=== PATIENT | female | born 1960 | race Caucasian/White ===

== ENCOUNTER 2018-07-30 09:47 | Day surgery (SDC) | payer MEDICAID ==
[~2018-07-30 09:47] MED LIST: PROPOFOL INJ 200 MG/20 ML VIAL IV ONE
[2018-07-30 12:10] VITALS: BP 108/70
--- NOTE | 2018-07-30 13:44 | Operative Report ---
Operative Report DATE OF SURGERY: 07/30/18 Operative Report: The risks benefits and alternatives of the procedure explained to the patient in detail and informed consent is obtained.A GIF Olympus video scope was inserted into the patient's mouth and hypopharynx, the esophagus is identified intubated and insufflated, the scope was then advanced through the esophagus stomach and duodenum, retroflexion maneuver is done, the esophagus stomach and first and second portions of the duodenum examined. PREOPERATIVE DIAGNOSIS: Gastroesophageal reflux disease POSTOPERATIVE DIAGNOSIS: Hiatal hernia. Gastritis status post biopsy for Helicobacter pylori OPERATION: EGD with biopsy SURGEON: GILMER HAMMER ANESTHESIA: LMAC TISSUE REMOVED OR ALTERED: As noted above. COMPLICATIONS: None. ESTIMATED BLOOD LOSS: None. INTRAOPERATIVE FINDINGS: As noted above. PROCEDURE: Patient tolerated the procedure well. No immediate postprocedure complications are noted. Patient discharged in good condition. Discharge date 07/30/2018. Discharge diet: Regular. Discharge activity: Regular. 2-3-week follow-up to discuss findings. Patient is instructed to call the office or proceed to the emergency room should there be any further proximal questions. I will wait on the pathology.
== END 2018-07-30 13:09 | disposition home or self-care (01) ==
LOC: END 09:47
PROVIDERS: ATTEND Internal Medicine Gastroenterology
DX: K44.9 Diaphragmatic hernia without obstruction or gangrene (principal); K29.70 Gastritis, unspecified, without bleeding; K21.9 Gastro-esophageal reflux disease without esophagitis; E78.5 Hyperlipidemia, unspecified; I10 Essential (primary) hypertension; Z87.891 Personal history of nicotine dependence; Z79.899 Other long term (current) drug therapy; Z79.82 Long term (current) use of aspirin; Z88.5 Allergy status to narcotic agent
CPT/HCPCS: 43239; 88342 ×2; 88305 ×2; J2704; 731

== ENCOUNTER → 2018-08-20 | Outpatient (CLI) | payer MEDICAID ==
[2018-08-20 14:09] LABS: ABSOLUTE EOSINOPHILS # (AUTO) 0.2 10^3/uL (0.0-0.6); ABSOLUTE LYMPHOCYTES (AUTO) 1.8 10^3/uL (0.5-4.7); ABSOLUTE MONOCYTES (AUTO) 0.5 10^3/uL (0.1-1.4); ABSOLUTE NEUT (AUTO) 3.1 10^3/uL (1.7-8.2); BASOPHILS % (AUTO) 0.8 % (0-2); HEMATOCRIT 38.3 % (36.0-47.0); HEMOGLOBIN 12.9 g/dL (12.0-15.5); LYMPHOCYTES % (AUTO) 31.9 % (13-45); MEAN CORPUSCULAR HEMOGLOBIN 26.9 pg (27.0-33.4); MEAN CORPUSCULAR HGB CONC 33.8 g/dL (32.0-36.0); MEAN CORPUSCULAR VOLUME 80 fl (80-97); MONOCYTES % (AUTO) 8.6 % (3-13); PLATELET COUNT 390 10^3/uL (150-450); RED CELL DISTRIBUTION WIDTH 14.1 % (11.5-14.0); SEGMENTED NEUTROPHILS % (AUTO) 55.7 % (42-78); TOTAL CELLS COUNTED % (AUTO) 100 %; WHITE BLOOD COUNT 5.5 10^3/uL (4.0-10.5)
[2018-08-20 14:30] LABS: ALANINE AMINOTRANSFERASE 16 U/L (9-52); ALBUMIN 4.4 g/dL (3.5-5.0); ALKALINE PHOSPHATASE 109 U/L (38-126); ANION GAP 9 (5-19); ASPARTATE AMINO TRANSFERASE 15 U/L (14-36); BILIRUBIN,DIRECT 0.2 mg/dL (0.0-0.4); BILIRUBIN,TOTAL 0.4 mg/dL (0.2-1.3); BLOOD UREA NITROGEN 14 mg/dL (7-20); C-REACTIVE PROTEIN 8.3 mg/L (<10.0); CALCIUM 10.5 mg/dL (8.4-10.2); CARBON DIOXIDE 27 mmol/L (22-30); CHLORIDE 100 mmol/L (98-107); GLUCOSE 90 mg/dL (75-110); SODIUM 135.7 mmol/L (137-145); TOTAL PROTEIN 7.7 g/dL (6.3-8.2)
--- NOTE | 2018-08-20 14:41 | RADIOLOGY REPORT (SQ) ---
EXAM DESCRIPTION: C SP 4 OR 5 VIEWS COMPLETED DATE/TIME: 08/20/2018 2:14 pm REASON FOR STUDY: CERVICALGIA G89.4 CHRONIC PAIN SYNDROME M25.50 PAIN IN UNSPECIFIED JOINT COMPARISON: None. NUMBER OF VIEWS: Five views. TECHNIQUE: AP, lateral, obliques and odontoid radiographic images acquired of the cervical spine. LIMITATIONS: None. FINDINGS: MINERALIZATION: Normal. ALIGNMENT: Anatomic. VERTEBRAE: Vertebral bodies of normal height. DISCS: Moderate to moderate severe disc space narrowing at C5-C6 and C6-C7. Small to very mild ante rior osteophytes. FORAMINA: Moderate to moderate severe foraminal narrowing on the right at C3-C4. Mild foraminal nieves rowing on the left at C5-C6 and C6-C7. Small posterior osteophytes encroach on the C6-C7 foramina bi laterally. LATERAL AND POSTERIOR ELEMENTS: Multilevel mild facet arthrosis. The lateral masses and spinous proc esses without significant findings. HARDWARE: None in the spine. SOFT TISSUES: No masses or calcifications. Lung apices clear. OTHER: The patient is edentulous. IMPRESSION: 1. Degenerative disc disease at C5-C6 and C6-C7. 2. Moderate to moderate severe foraminal narrowing on the right at C3-C4. Mild foraminal narrowing on the left at C5-C6 and C6-C7. Small posterior osteophytes encroach on the foramina bilaterally at C6-C7. 3. No acute osseous findings. TECHNICAL DOCUMENTATION: JOB ID: [id number] [employer]- All Rights Reserved Reading location - IP/workstation name: [email or web address]
--- NOTE | 2018-08-20 14:42 | RADIOLOGY REPORT (SQ) ---
EXAM DESCRIPTION: HIPS BILATERAL COMPLETED DATE/TIME: 08/20/2018 2:14 pm REASON FOR STUDY: PAIN IN UNSPECIFIED JOINT G89.4 CHRONIC PAIN SYNDROME M25.50 PAIN IN UNSPECIFIED JOINT COMPARISON: None. NUMBER OF VIEWS: Two views TECHNIQUE: AP pelvis and additional frog-leg view of both hips. LIMITATIONS: None. FINDINGS: MINERALIZATION: Normal. HIPS: No acute fracture or dislocation. No worrisome bone lesions. PELVIS AND SACRUM: No acute fracture or dislocation. No worrisome bone lesions. PUBIS AND ISCHIUM: No acute fracture. LOWER LUMBAR SPINE: No significant findings as visualized. SOFT TISSUES: No findings. OTHER: No other significant finding. IMPRESSION: 1. NEGATIVE STUDY OF THE PELVIS AND HIPS. TECHNICAL DOCUMENTATION: JOB ID: [id number] [employer]- All Rights Reserved Reading location - IP/workstation name: [email or web address]
[2018-08-20 14:47] LABS: FREE T3 4.51 pg/mL (2.77-5.27); FREE T4 (FREE THYROXINE) 1.31 ng/dL (0.78-2.19)
[2018-08-20 14:58] LABS: ERYTHROCYTE SEDIMENTATION RATE 24 mm/hr (0-30)
[2018-08-20 15:00] LABS: THYROID STIMULATING HORMONE 5.61 uIU/mL (0.47-4.68)
[2018-08-21 14:43] LABS: ANTINUCLEAR ANTIBODIES Negative (Negative)
== END ==
LOC: OD 12:44
PROVIDERS: ATTEND Physician Assistant
DX: M25.50 Pain in unspecified joint (principal); G89.4 Chronic pain syndrome
CPT/HCPCS: 36415; 72050; 73522; 80053; 82607; 82652; 84439; 84443; 84481; 85025; 85652; 86038; 86140; 86430

== ENCOUNTER → 2018-08-30 | Outpatient (CLI) | payer MEDICAID ==
--- NOTE | 2018-08-30 10:28 | RADIOLOGY REPORT (SQ) ---
EXAM DESCRIPTION: U/S ABDOMEN LIMITED W/O DOP COMPLETED DATE/TIME: 08/30/2018 9:20 am REASON FOR STUDY: ABDOMINAL PAIN R10.9 UNSPECIFIED ABDOMINAL PAIN COMPARISON: None. TECHNIQUE: Dynamic and static grayscale images acquired of the abdomen and recorded on PACS. Deniseo davidson selected color Doppler and spectral images recorded. LIMITATIONS: None. FINDINGS: PANCREAS: The liver is somewhat echogenic. There is no mass. LIVER: No masses. Echotexture normal. LIVER VASCULATURE: Normal directional flow of the main portal vein and hepatic veins. GALLBLADDER: No stones. Normal wall thickness. No pericholecystic fluid. ULTRASOUND-DETECTED GANNON'S SIGN: Negative. INTRAHEPATIC DUCTS AND COMMON DUCT: CBD and intrahepatic ducts normal caliber. No filling defects. INFERIOR VENA CAVA: Normal flow. AORTA: No aneurysm. RIGHT KIDNEY: Normal size, 9.9 cm. Cortical thinning. Normal echogenicity. No solid or suspicious m asses. No hydronephrosis. No calcifications. PERITONEAL AND RIGHT PLEURAL SPACE: No ascites or effusions. OTHER: No other significant findings. IMPRESSION: NORMAL RIGHT UPPER QUADRANT ULTRASOUND. TECHNICAL DOCUMENTATION: JOB ID: [id number] [employer]- All Rights Reserved Reading location - IP/workstation name: [email or web address]
== END ==
LOC: RAD 08:40
PROVIDERS: ATTEND Surgery
DX: R10.9 Unspecified abdominal pain (principal)
CPT/HCPCS: 76705

== ENCOUNTER → 2018-09-13 | Day surgery (SDC) | payer MEDICAID ==
[~2018-09-13] MED LIST changes: +LIDOCAINE 2% JELLY 5 ML TUBE ONE; -PROPOFOL INJ 200 MG/20 ML VIAL IV ONE
== END ==
LOC: END 07:54
PROVIDERS: ATTEND Surgery
DX: K21.9 Gastro-esophageal reflux disease without esophagitis (principal)
CPT/HCPCS: 91010; J3490

== ENCOUNTER 2018-11-08 07:57 | Observation (INO) | payer MEDICAID ==
[2018-10-31 10:43] LABS: HEMATOCRIT 38.3 % (36.0-47.0); HEMOGLOBIN 12.6 g/dL (12.0-15.5); MEAN CORPUSCULAR HEMOGLOBIN 26.6 pg (27.0-33.4); MEAN CORPUSCULAR HGB CONC 32.9 g/dL (32.0-36.0); MEAN CORPUSCULAR VOLUME 81 fl (80-97); PLATELET COUNT 428 10^3/uL (150-450); RED BLOOD COUNT 4.75 10^6/uL (3.72-5.28); WHITE BLOOD COUNT 7.3 10^3/uL (4.0-10.5)
[2018-10-31 11:14] LABS: ANION GAP 11 (5-19); BLOOD UREA NITROGEN 16 mg/dL (7-20); CALCIUM 9.7 mg/dL (8.4-10.2); CARBON DIOXIDE 27 mmol/L (22-30); CHLORIDE 101 mmol/L (98-107); GLUCOSE 86 mg/dL (75-110); POTASSIUM 4.1 mmol/L (3.6-5.0); SODIUM 138.9 mmol/L (137-145)
--- NOTE | 2018-10-31 12:21 | RADIOLOGY REPORT (SQ) ---
EXAM DESCRIPTION: CHEST PA/LATERAL COMPLETED DATE/TIME: 10/31/2018 10:43 am REASON FOR STUDY: PRE-OP COMPARISON: None. EXAM PARAMETERS: NUMBER OF VIEWS: two views TECHNIQUE: Digital Frontal and Lateral radiographic views of the chest acquired. RADIATION DOSE: NA LIMITATIONS: none FINDINGS: LUNGS AND PLEURA: No opacities, masses or pneumothorax. No pleural effusion. MEDIASTINUM AND HILAR STRUCTURES: No masses or contour abnormalities. HEART AND VASCULAR STRUCTURES: Heart normal size. No evidence for failure. BONES: No acute findings. HARDWARE: None in the chest. OTHER: No other significant finding. IMPRESSION: NO SIGNIFICANT RADIOGRAPHIC FINDING IN THE CHEST. TECHNICAL DOCUMENTATION: JOB ID: [id number] [employer]- All Rights Reserved Reading location - IP/workstation name: [email or web address]
--- NOTE | 2018-10-31 17:57 | EKG REPORT ---
SEVERITY:- ABNORMAL ECG - SINUS RHYTHM NONSPECIFIC T ABNORMALITIES, ANTERIOR LEADS BORDERLINE PROLONGED QT INTERVAL : Confirmed by: Sean Alvarez 31-Oct-2018 17:57:07
[~2018-11-08 07:57] MED LIST changes: +BUPIVACAINE HCL 0.25% /EPINEPHRINE INJ/PF 30 ML SDV ONE; +CEFAZOLIN 2 GM/D5W RTU 2 GM/50 ML RTUPB IV ONE; +CEFAZOLIN 2 GM/D5W RTU 2 GM/50 ML RTUPB IV PRN; +DEXAMETHASONE SOD PHOSPHATE INJ 4 MG/1 ML VIAL ONE; +FENTANYL CITRATE INJ/PF 250 MCG/5 ML AMPULE ONE; -LIDOCAINE 2% JELLY 5 ML TUBE ONE; +MIDAZOLAM 2 MG/2 ML INJ ONE; +ONDANSETRON HCL INJ/PF 4 MG/2 ML SDV ONE; +PROPOFOL INJ 200 MG/20 ML VIAL IV ONE; +SUGAMMADEX SODIUM 200 MG/2 ML SDV IV ONE
[2018-11-08] MEDS ORDERED: PROMETHAZINE HCL INJ 25 MG/1 ML VIAL IV PRN ×2 (10:14)
[2018-11-08] MEDS ORDERED: FENTANYL CITRATE INJ/PF 100 MCG/2 ML AMPUL IV PRN ×3 (10:14)
[2018-11-08] MEDS ORDERED: MEPERIDINE HCL/PF INJ 25 MG/1 ML DISP.SYRIN IV PRN (10:14)
[2018-11-08] MEDS ORDERED: DIPHENHYDRAMINE HCL 50 MG/ML VIAL IV PRN (10:14)
--- NOTE | 2018-11-08 10:52 | Operative Report ---
Nonrecallable Operative Report DATE OF SURGERY: 11/08/18 PREOPERATIVE DIAGNOSIS: gerd POSTOPERATIVE DIAGNOSIS: gerd OPERATION: laparoscopic charly fundoplication SURGEON: COLLIN GARCIA MEDICAL UNDERWRITER: TIFFANY NEGRETE ANESTHESIA: GA TISSUE REMOVED OR ALTERED: none COMPLICATIONS: none ESTIMATED BLOOD LOSS: 25cc. INTRAOPERATIVE FINDINGS: see dictation PROCEDURE: Laparoscopic Charly fundoplication Patient was brought to the operating room when awake and alert in stable condition placed on the operating table in supine position induced under general anesthesia and intubated the abdomen was prepped and draped in usual sterile fashion After an appropriate timeout and site verification the varies needle was placed into the umbilicus and the abdomen was insufflated with 6 L of CO2 gas A supraumbilical 10 mm incision was made with a 15 blade and 10 mm port placed into the abdominal cavity intra-abdominal visualization revealed no evidence of a varies needle or trocar injury to epigastric ports were placed under direct vision a 5 and a 10 a right and left upper quadrant 5 mm port all placed under direct vision Stomach was identified we began along the greater curvature dividing the gastrocolic ligament with the LigaSure device all the way to the angle of Hiss We identified the left slip of the nika. We then turned attention to the right side identify the gastrohepatic omentum divided that identified the right slip of the nika. Then over a 56 Nicaraguan bougie dilator the nika was reapproximated with 3 stitches of 0 Surgidac. Once the nika was reapproximated we then passed the fundus posteriorly around the esophagus and fixed it to itself anteriorly and the esophagus with 3 stitches of 0 Surgidac over the 56 [place]ar[place] bougie dilator to create a floppy Charly wrap. This created a 1-1/2 cm long floppy Charly wrap. Once this was completed we checked for hemostasis it was noted to be intact the ports were removed the fascial defects for the 10 mm port sites were closed with 0 Vicryl and the skin was all closed with intracuticular 4-0 Biosyn and Steri- Strips completed the procedure estimated blood loss was less than 25 cc sponge and needle counts were correct x2 the patient was awakened in the operating room extubated transferred recovery in stable condition no complications
[2018-11-08] MEDS ORDERED: ONDANSETRON HCL INJ/PF 4 MG/2 ML SDV IV PRN (10:53)
[2018-11-08] MEDS ORDERED: DEXTROSE 5%-LACTATED RINGERS 1,000 ML IV PRN (10:53)
[2018-11-08] MEDS: HYDROMORPHONE HCL INJ/PF 2 MG/ML AMPULE ONE ×2 (10:57→11:05)
[2018-11-08] MEDS ORDERED: KETOROLAC TROMETHAMINE INJ/PF 30 MG/1 ML SDV IV SCH (11:00)
[2018-11-08] MEDS ORDERED: FENTANYL CITRATE INJ/PF 100 MCG/2 ML AMPUL ONE (11:07)
[2018-11-08] MEDS ORDERED: PROMETHAZINE HCL INJ 25 MG/1 ML VIAL ONE (11:07)
[2018-11-08] MEDS ORDERED: SUCCINYLCHOLINE CHLORIDE INJ 200 MG/10 ML VIAL ONE (14:09)
[2018-11-08] MEDS ORDERED: ROCURONIUM BROMIDE INJ 50 MG/5 ML VIAL IV ONE (14:09)
[2018-11-08] MEDS: MORPHINE SULFATE 10 MG/ML INJ IV PRN ×2 (14:46→19:39)
--- NOTE | 2018-11-08 20:05 | EKG REPORT ---
SEVERITY:- ABNORMAL ECG - SINUS RHYTHM NONSPECIFIC T ABNORMALITIES, ANTERIOR LEADS : Confirmed by: Jacqueline Guerrero MD 08-Nov-2018 20:04:05
[2018-11-08] MEDS: LABETALOL HCL 200 MG TABLET PO SCH (21:32)
[2018-11-08] MEDS: FAMOTIDINE INJ/PF 20 MG/2 ML SDV IV SCH (21:32)
[2018-11-08] MEDS ORDERED: (PENDING PHARMACY ID) (Lamotrigine [Lamictal] 150 MG) PO SCH (22:00)
[2018-11-08] MEDS: LURASIDONE HCL 60 MG TABLET PO SCH (22:30)
[2018-11-08] MEDS: LAMOTRIGINE 100 MG TABLET PO SCH (22:31)
[2018-11-08] MEDS: KETOROLAC TROMETHAMINE INJ/PF 30 MG/1 ML SDV IV PRN (22:43)
[2018-11-09] MEDS: MORPHINE SULFATE 10 MG/ML INJ IV PRN ×3 (00:46→09:11)
[2018-11-09 06:30] LABS: ABSOLUTE BASOPHILS # (AUTO) 0.1 10^3/uL (0.0-0.2); ABSOLUTE LYMPHOCYTES (AUTO) 1.7 10^3/uL (0.5-4.7); ABSOLUTE MONOCYTES (AUTO) 0.7 10^3/uL (0.1-1.4); ABSOLUTE NEUT (AUTO) 7.2 10^3/uL (1.7-8.2); BASOPHILS % (AUTO) 1.1 % (0-2); HEMATOCRIT 32.3 % (36.0-47.0); HEMOGLOBIN 10.7 g/dL (12.0-15.5); LYMPHOCYTES % (AUTO) 17.6 % (13-45); MEAN CORPUSCULAR HEMOGLOBIN 26.9 pg (27.0-33.4); MEAN CORPUSCULAR HGB CONC 33.2 g/dL (32.0-36.0); MEAN CORPUSCULAR VOLUME 81 fl (80-97); MONOCYTES % (AUTO) 7.2 % (3-13); PLATELET COUNT 374 10^3/uL (150-450); RED BLOOD COUNT 3.99 10^6/uL (3.72-5.28); RED CELL DISTRIBUTION WIDTH 14.3 % (11.5-14.0); SEGMENTED NEUTROPHILS % (AUTO) 74.1 % (42-78); TOTAL CELLS COUNTED % (AUTO) 100 %; WHITE BLOOD COUNT 9.7 10^3/uL (4.0-10.5)
[2018-11-09 06:53] LABS: ANION GAP 9 (5-19); BLOOD UREA NITROGEN 11 mg/dL (7-20); CALCIUM 9.2 mg/dL (8.4-10.2); CARBON DIOXIDE 24 mmol/L (22-30); CHLORIDE 105 mmol/L (98-107); GLUCOSE 92 mg/dL (75-110); POTASSIUM 4.5 mmol/L (3.6-5.0); SODIUM 137.6 mmol/L (137-145)
--- NOTE | 2018-11-09 07:29 | PDOC PROGRESS REPORT ---
Subjective Progress Note for:: 11/09/18 Subjective:: feels ok, swallowing ok Reason For Visit: K44.9 DIAPHRAGMATIC HERNIA WITHOUT OBSTRUCTION OR Physical Exam Vital Signs: Temp Pulse Resp BP Pulse Ox 98.0 F 73 16 106/43 L 92 11/09/18 03:52 11/09/18 03:52 11/09/18 03:52 11/09/18 03:52 11/09/18 03:52 Intake & Output 11/08/18 11/09/18 11/10/18 06:59 06:59 06:59 Intake Total 2475 Output Total 5 Balance 2470 Weight 67.13 kg General appearance: PRESENT: no acute distress Head exam: PRESENT: normocephalic Eye exam: PRESENT: EOMI Ear exam: PRESENT: normal external ear exam Mouth exam: PRESENT: moist Neck exam: PRESENT: full ROM GI/Abdominal exam: PRESENT: soft Rectal exam: PRESENT: deferred Extremities exam: PRESENT: full ROM Musculoskeletal exam: PRESENT: full ROM Neurological exam: PRESENT: alert, awake, oriented to person Psychiatric exam: PRESENT: appropriate affect Skin exam: PRESENT: dry Results Laboratory Results: 11/09/18 06:05 11/09/18 06:05 11/09/18 11/09/18 06:05 06:05 WBC 9.7 RBC 3.99 Hgb 10.7 L Hct 32.3 L MCV 81 MCH 26.9 L MCHC 33.2 RDW 14.3 H Plt Count 374 Seg Neutrophils % 74.1 Lymphocytes % 17.6 Monocytes % 7.2 Eosinophils % 0.0 Basophils % 1.1 Absolute Neutrophils 7.2 Absolute Lymphocytes 1.7 Absolute Monocytes 0.7 Absolute Eosinophils 0.0 Absolute Basophils 0.1 Sodium 137.6 Potassium 4.5 Chloride 105 Carbon Dioxide 24 Anion Gap 9 BUN 11 Creatinine 0.81 Est GFR ( Amer) > 60 Est GFR (Non-Af Amer) > 60 Glucose 92 Calcium 9.2 Impressions: Chest X-Ray 10/31/18 00:00 IMPRESSION: NO SIGNIFICANT RADIOGRAPHIC FINDING IN THE CHEST. Assessment & Plan - Plan Summary Plan Summary: S post lap Cahrly postop day 1 tolerating clear liquid diet pain controlled ready for discharge home today
--- NOTE | 2018-11-09 07:33 | PDOC DISCHARGE SUMMARY ---
General - Admit/Disc Date/PCP Admission Date/Primary Care Provider: BRI COHEN Discharge Date: 11/09/18 - Additional Information Home Medications: Alprazolam [Xanax 0.5 mg Tablet] 0.5 mg PO Q12 11/08/18 Aspirin [Ecotrin 81 mg EC Tablet] 81 mg PO DAILY 11/08/18 Buprenorphine [Butrans] 10 mcg TOP MO@1000 11/08/18 Dexlansoprazole [Dexilant 60 mg Capsule] 60 mg PO DAILY 11/08/18 Labetalol HCl [Normodyne 200 mg Tablet] 200 mg PO Q12 11/08/18 Lamotrigine [Lamictal] 150 mg PO Q12 11/08/18 Lurasidone HCl [Latuda 60 mg Tablet] 60 mg PO BID 11/08/18 Trazodone HCl [Desyrel] 100 mg PO QHS 11/08/18 Zolpidem Tartrate [Ambien Cr] 12.5 mg PO HSP PRN 11/08/18 History of Present Illness History of Present Illness: KRISSY ALFORD is a 58 year old female who was admitted electively for laparoscopic Charly fundoplication Hospital Course Hospital Course: This is a 58-year-old female who was admitted electively for a laparoscopic Charly from fundoplication when the procedure on the day of admission and tolerated well postoperatively she had a routine benign postop course she was started on a clear liquid diet which she tolerated over the evening this morning she is afebrile with stable vital signs she is tolerating a clear liquid diet and ready for discharge home. Patient will be discharged home today on a full liquid diet she will resume her own previous daily medications and she will be given Percocet and Colace for pain and stool softener Follow-up in 7 to 10 days after discharge she is instructed it is okay to shower not to lift anything greater than 5 to 10 pounds for the next 4 to 6 weeks Physical Exam Vital Signs: Temp Pulse Resp BP Pulse Ox 98.0 F 73 16 106/43 L 92 11/09/18 03:52 11/09/18 03:52 11/09/18 03:52 11/09/18 03:52 11/09/18 03:52 Intake & Output 11/08/18 11/09/18 11/10/18 06:59 06:59 06:59 Intake Total 2475 Output Total 5 Balance 2470 Weight 67.13 kg General appearance: PRESENT: no acute distress Head exam: PRESENT: normocephalic Eye exam: PRESENT: EOMI Mouth exam: PRESENT: moist Neck exam: PRESENT: full ROM Respiratory exam: PRESENT: clear to auscultation rajeev Cardiovascular exam: PRESENT: RRR Pulses: PRESENT: normal radial pulses, normal femoral pulses GI/Abdominal exam: PRESENT: soft Rectal exam: PRESENT: deferred Extremities exam: PRESENT: full ROM Musculoskeletal exam: PRESENT: full ROM Neurological exam: PRESENT: alert, awake, oriented to person, oriented to place Psychiatric exam: PRESENT: appropriate affect Skin exam: PRESENT: dry Results Laboratory Results: 11/09/18 06:05 11/09/18 06:05 11/09/18 11/09/18 06:05 06:05 WBC 9.7 RBC 3.99 Hgb 10.7 L Hct 32.3 L MCV 81 MCH 26.9 L MCHC 33.2 RDW 14.3 H Plt Count 374 Seg Neutrophils % 74.1 Lymphocytes % 17.6 Monocytes % 7.2 Eosinophils % 0.0 Basophils % 1.1 Absolute Neutrophils 7.2 Absolute Lymphocytes 1.7 Absolute Monocytes 0.7 Absolute Eosinophils 0.0 Absolute Basophils 0.1 Sodium 137.6 Potassium 4.5 Chloride 105 Carbon Dioxide 24 Anion Gap 9 BUN 11 Creatinine 0.81 Est GFR ( Amer) > 60 Est GFR (Non-Af Amer) > 60 Glucose 92 Calcium 9.2 Impressions: Chest X-Ray 10/31/18 00:00 IMPRESSION: NO SIGNIFICANT RADIOGRAPHIC FINDING IN THE CHEST. Qualifiers - * PATIENT BEING DISCHARGED WITH ANY OF THE FOLLOWING DIAGNOSIS: No VTE patient discharged on overlapping Therapy?: No Reason(s) for not prescribing Overlap Therapy:: Not indicated Reason(s) for not prescribing Anti-thrombolytic therapy:: Not indicated Reason(s) for not prescribing Anti-coagulation therapy:: Not indicated Reason(s) for not prescribing Statins therapy:: Not indicated Reason(s) for not prescribing Aspirin therapy:: Not indicated Reason(s) for not prescribing Statin therapy:: Not indicated Reason(s) for not prescribing ACEI/ARBS:: Not indicated Acute Heart Failure - Is this a Heart Failure Patient?: No Plan Discharge Plan: She will be discharged home today she will follow-up with me in 7 to 10 days after discharge Time Spent: Less than 30 Minutes
[2018-11-09] MEDS: KETOROLAC TROMETHAMINE INJ/PF 30 MG/1 ML SDV IV PRN (08:11)
[2018-11-09 09:06] VITALS: BP 128/74
[2018-11-09] MEDS: FAMOTIDINE INJ/PF 20 MG/2 ML SDV IV SCH (09:09)
[2018-11-09] MEDS: LABETALOL HCL 200 MG TABLET PO SCH (09:12)
[2018-11-09] MEDS: LAMOTRIGINE 100 MG TABLET PO SCH (09:13)
[2018-11-09] MEDS: LURASIDONE HCL 60 MG TABLET PO SCH (09:13)
== END 2018-11-09 10:24 | disposition home or self-care (01) ==
LOC: OROUT 07:57 → 2N 11:59 → OROUT 11-09 08:19 → 2N 11-09 08:20
PROVIDERS: ADMIT Surgery; ATTEND Surgery
PROC: 0DV44ZZ Restriction of Esophagogastric Junction, Percutaneous Endoscopic Approach (ICD-10-PCS; principal; 2018-11-08 10:00)
DX: K21.9 Gastro-esophageal reflux disease without esophagitis (principal); K44.9 Diaphragmatic hernia without obstruction or gangrene; I10 Essential (primary) hypertension; K58.9 Irritable bowel syndrome, unspecified; Z79.899 Other long term (current) drug therapy; Z79.82 Long term (current) use of aspirin; Z87.891 Personal history of nicotine dependence
CPT/HCPCS: 93005 ×2; 36415 ×2; 85025; 85027; 80048 ×2; 71046; 94799; 93010 ×2; 00790; 43280; G0378 ×2; J2250; J3490 ×7; J1100; J3010 ×2; J1885 ×2; J2270 ×2; J1170; J2550; J0330; J2405; J7121; J2704; S0028; J0690; 790

== ENCOUNTER → 2019-02-12 | Outpatient (CLI) | payer MEDICAID ==
--- NOTE | 2019-02-12 15:47 | RADIOLOGY REPORT (SQ) ---
EXAM DESCRIPTION: CT ABD/PELVIS ORAL ONLY COMPLETED DATE/TIME: 02/12/2019 3:33 pm REASON FOR STUDY: R10.30 LOWER ABDOMINAL PAIN, UNSPECIFIED, Z98.890 OTHER SPECIFIED POSTPROCE R10.30 LOWER ABDOMINAL PAIN, UNSPECIFIED Z98.890 OTHER SPECIFIED POSTPROCEDURAL STATES COMPARISON: None. TECHNIQUE: CT scan of the abdomen and pelvis performed with oral contrast and no intravenous contras t. Images reviewed with lung, soft tissue, and bone windows. Reconstructed coronal and sagittal MPR i mages reviewed. All images stored on PACS. All CT scanners at this facility use dose modulation, iterative reconstruction, and/or weight based d osing when appropriate to reduce radiation dose to as low as reasonably achievable (ALARA). [facility]: Dose Right [facility]: CareDose [facility]: Dose Right [facility]: Teradose 4D [facility]: Smart CE2 [employer] RADIATION DOSE: CT Rad equipment meets quality standard of care and radiation dose reduction techniq ues were employed. CTDIvol: 5.7 mGy. DLP: 298 mGy-cm.mGy. LIMITATIONS: None. FINDINGS: LOWER CHEST: No significant findings. No nodules or infiltrates. NON-CONTRASTED LIVER, SPLEEN, ADRENALS: Evaluation limited by lack of IV contrast. No identified sign ificant masses. PANCREAS: No masses. No peripancreatic inflammatory changes. GALLBLADDER: No identified stones by CT criteria. No inflammatory changes to suggest cholecystitis. RIGHT KIDNEY AND URETER: No solid masses. No significant calcification. No hydronephrosis or hydroure ter. LEFT KIDNEY AND URETER: No solid masses. No significant calcification. No hydronephrosis or hydrouret er. AORTA AND RETROPERITONEUM: No aneurysm. No retroperitoneal masses or adenopathy. BOWEL AND PERITONEAL CAVITY: No obvious masses or inflammatory changes. No free fluid. APPENDIX: Not visualized. PELVIS, BLADDER, AND ABDOMINAL WALL: No abnormal pelvic masses. No abdominal wall hernias. Bladder un remarkable. BONES: No significant findings. OTHER: No other significant finding. IMPRESSION: NO SIGNIFICANT OR ACUTE ABDOMINAL PROCESS. TECHNICAL DOCUMENTATION: JOB ID: [id number] Quality ID # [id number]: Final reports with documentation of one or more dose reduction techniques (e.g., Au tomated exposure control, adjustment of the mA and/or kV according to patient size, use of iterative reconstruction technique) 2010 [employer]- All Rights Reserved Reading location - IP/workstation name: [email or web address]
== END ==
LOC: RAD 15:02
PROVIDERS: ATTEND Surgery
DX: R10.30 Lower abdominal pain, unspecified (principal); Z98.890 Other specified postprocedural states
CPT/HCPCS: 74176

== ENCOUNTER 2019-06-26 15:03 | Inpatient (IN) | payer MEDICAID ==
[2019-06-26] MEDS ORDERED: OXYCODONE-ACETAMINOPHEN 5-325 MG TABLET PO ONE (16:50)
--- NOTE | 2019-06-26 16:52 | ER Document Report ---
ED Medical Screen (RME) - General Stated Complaint: CHEST PAIN/ARM PAIN/DOG SCRATCH Time Seen by Provider: 06/26/19 16:44 Primary Care Provider: COLLIN CUELLAR MD [Primary Care Provider] - Follow up as needed Notes: HPI: 58-year-old female presenting for infection on the right arm. Was scratched by a dog 4 to 5 days ago. Has a history of MRSA states the swelling redness and pain have progressively gotten worse. No definitive fevers but has had chills. States the pain seems to radiate up the arm along with the redness. States there is a large open wound area on the forearm where she was scratched I have greeted and performed a rapid initial assessment of this patient. A comprehensive ED assessment and evaluation of the patient, analysis of test results and completion of the medical decision making process will be conducted by additional ED providers PHYSICAL EXAMINATION: GENERAL: Well-appearing, well-nourished and in moderate acute distress. HEAD: Atraumatic, normocephalic. EYES: sclera anicteric, conjunctiva are normal. ENT: Moist mucous membranes. NECK: Normal range of motion LUNGS: Normal work of breathing, clear to auscultation HEART: 2+ radial pulses bilaterally, mild tachycardia ABD: limited by positioning for exam in triage. EXTREMITIES: no pitting or edema. No cyanosis. NEUROLOGICAL: No focal neurological deficits. Moves all extremities spontaneously and on command. PSYCH: Normal mood, normal affect. SKIN: Warm, Dry, normal turgor, there is cellulitis circumferentially to the entire right forearm with a large draining open wound on the dorsal aspect of the right forearm. TRAVEL OUTSIDE OF THE [place] 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 Denies: Hx Cerebrovascular Accident Musculoskeltal Medical History: Reports Hx Arthritis - rheumatic arthritis Psychiatric Medical History: Reports: Hx Bipolar Disorder, Hx Post Traumatic Stress Disorder, Hx Schizophrenia Past Surgical History: Reports: Hx Hysterectomy, Hx Pancreatic Surgery - right rotator cuff surgery X2 - Immunizations Hx Diphtheria, Pertussis, Tetanus Vaccination: Yes Physical Exam - Vital signs Vitals: Temp Pulse Resp BP Pulse Ox 98.0 F 85 24 H 125/68 96 06/26/19 16:36 06/26/19 16:36 06/26/19 16:36 06/26/19 16:36 06/26/19 16:36 Course - Vital Signs Vital signs: Temp Pulse Resp BP Pulse Ox 98.0 F 85 24 H 125/68 96 06/26/19 16:36 06/26/19 16:36 06/26/19 16:36 06/26/19 16:36 06/26/19 16:36 Doctor's Discharge - Discharge Referrals: COLLIN CUELLAR MD [Primary Care Provider] - Follow up as needed
[2019-06-26 17:36] LABS: ABSOLUTE BASOPHILS # (AUTO) 0.1 10^3/uL (0.0-0.2); ABSOLUTE EOSINOPHILS # (AUTO) 0.1 10^3/uL (0.0-0.6); ABSOLUTE LYMPHOCYTES (AUTO) 1.6 10^3/uL (0.5-4.7); ABSOLUTE NEUT (AUTO) 10.6 10^3/uL (1.7-8.2); BASOPHILS % (AUTO) 0.8 % (0-2); EOSINOPHILS % (AUTO) 0.8 % (0-6); HEMATOCRIT 34.4 % (36.0-47.0); HEMOGLOBIN 11.8 g/dL (12.0-15.5); LYMPHOCYTES % (AUTO) 11.7 % (13-45); MEAN CORPUSCULAR HEMOGLOBIN 28.3 pg (27.0-33.4); MEAN CORPUSCULAR HGB CONC 34.2 g/dL (32.0-36.0); MEAN CORPUSCULAR VOLUME 83 fl (80-97); MONOCYTES % (AUTO) 7.4 % (3-13); PLATELET COUNT 428 10^3/uL (150-450); RED BLOOD COUNT 4.15 10^6/uL (3.72-5.28); RED CELL DISTRIBUTION WIDTH 13.2 % (11.5-14.0); SEGMENTED NEUTROPHILS % (AUTO) 79.3 % (42-78); TOTAL CELLS COUNTED % (AUTO) 100 %; WHITE BLOOD COUNT 13.3 10^3/uL (4.0-10.5)
[2019-06-26 17:58] LABS: ALBUMIN 4.2 g/dL (3.5-5.0); ALKALINE PHOSPHATASE 104 U/L (38-126); ANION GAP 15 (5-19); ASPARTATE AMINO TRANSFERASE 20 U/L (14-36); BILIRUBIN,DIRECT 0.1 mg/dL (0.0-0.4); BILIRUBIN,TOTAL 0.3 mg/dL (0.2-1.3); BLOOD UREA NITROGEN 34 mg/dL (7-20); CALCIUM 9.6 mg/dL (8.4-10.2); CARBON DIOXIDE 21 mmol/L (22-30); CHLORIDE 99 mmol/L (98-107); GLUCOSE 100 mg/dL (75-110); POTASSIUM 3.4 mmol/L (3.6-5.0); TOTAL PROTEIN 7.5 g/dL (6.3-8.2)
[2019-06-26] MEDS: CLINDAMYCIN 900 MG/D5W RTU 900 MG/50 ML RTUPB IV SCH ×2 (19:21→22:31)
[2019-06-26] MEDS ORDERED: VANCOMYCIN HCL INJ 1000 MG VIAL IV ONE (20:33)
[2019-06-26] MEDS ORDERED: MORPHINE SULFATE 10 MG/ML INJ IV ONE (20:33)
[2019-06-26] MEDS ORDERED: ONDANSETRON HCL INJ/PF 4 MG/2 ML SDV IV ONE (20:35)
--- NOTE | 2019-06-26 21:00 | RADIOLOGY REPORT (SQ) ---
EXAM DESCRIPTION: XR FOREARM 2 VIEWS COMPLETED DATE/TME: 06/26/2019 20:32 CLINICAL HISTORY: 58 years, Female, pain, cellultitis COMPARISON: None. NUMBER OF VIEWS: 2 TECHNIQUE: LIMITATIONS: None. FINDINGS: Alignment is anatomic. No acute displaced fracture. Mild soft tissue swelling. No plain radiographic evidence of vasculitis. No soft tissue gas. Osteoarthritis IMPRESSION: Unremarkable exam copyright 2010 [employer]- All Rights Reserved
--- NOTE | 2019-06-26 21:01 | ER Document Report ---
ED General - General Chief Complaint: Chest Pain Stated Complaint: CHEST PAIN/ARM PAIN/DOG SCRATCH Time Seen by Provider: 06/26/19 16:44 Primary Care Provider: COLLIN CUELLAR MD [ACTIVE STAFF] - Follow up as needed TRAVEL OUTSIDE OF THE [place] IN LAST 30 DAYS: No - HPI Notes: 58-year-old female presents with wound infection related to a scratch from a dog which occurred approximately 5 days ago. She was seen by her primary care provider at [facility] and started on Septra orally. She says not only his infection not getting better is actually progressing. She has had some intermittent chills and subjective fever but has not taken fever at home. Mild nausea without vomiting. Patient says she has had a past history of MRSA. Patient denies any history of diabetes. Patient is being treated for bipolar disorder. Patient also has a history of hypertension and is taking oral labetalol for this. - Related Data Allergies/Adverse Reactions: lidocaine [Lidocaine] Allergy (Severe, Verified 11/08/18 08:08) Seizures codeine [Codeine] Allergy (Unknown, Verified 11/08/18 08:51) RASH Past Medical History - General Information source: Patient - Social History Smoking Status: Former Smoker Frequency of alcohol use: None Drug Abuse: Cocaine, Methamphetamine Family History: Reviewed & Not Pertinent Patient has suicidal ideation: No Patient has homicidal ideation: No - Past Medical History Cardiac Medical History: Reports: Hx Hypertension Denies: Hx Coronary Artery Disease, Hx Heart Attack Pulmonary Medical History: Denies: Hx Asthma, Hx Bronchitis, Hx COPD, Hx Pneumonia Neurological Medical History: Reports: Hx Seizures - pseudo seizures. Denies: Hx Cerebrovascular Accident Musculoskeletal Medical History: Reports Hx Arthritis - rheumatic arthritis Psychiatric Medical History: Reports: Hx Bipolar Disorder, Hx Post Traumatic Stress Disorder, Hx Schizophrenia Past Surgical History: Reports: Hx Hysterectomy, Hx Pancreatic Surgery - right rotator cuff surgery X2 - Immunizations Hx Diphtheria, Pertussis, Tetanus Vaccination: Yes Review of Systems - Review of Systems Notes: Constitutional: Negative for fever. HENT: Negative for sore throat. Eyes: Negative for visual changes. Cardiovascular: Negative for chest pain. Respiratory: Negative for shortness of breath. Gastrointestinal: Negative for abdominal pain, vomiting or diarrhea. Genitourinary: Negative for dysuria. Musculoskeletal: As per HPI. Skin: Negative for rash. Neurological: Negative for headaches, weakness or numbness. 10 point ROS negative except as marked above and in HPI. Physical Exam - Vital signs Vitals: Temp Pulse Resp BP Pulse Ox 98.0 F 85 24 H 125/68 96 06/26/19 16:36 06/26/19 16:36 06/26/19 16:36 06/26/19 16:36 06/26/19 16:36 - Notes Notes: GENERAL: Female patient appearing approximately stated age who is obviously quite uncomfortable. SKIN: Redness swelling and maceration of tissues over the entire dorsal aspect of the right forearm. HEAD: Normocephalic atraumatic. EYES: PERRLA. EOMI. Conjunctivae and sclerae clear. EARS: CANALS AND TMS CLEAR. NOSE: CLEAR. MOUTH: Moist mucosa. Good dentition. No stridor or edema. No drooling. NECK: Supple. No masses or thyromegaly. No adenopathy. Carotids 2+ without bruits. No JVD. BACK: Symmetrical without tenderness. CHEST: Respirations unlabored. Breath sounds clear and symmetrical. HEART: Regular rhythm. No murmur gallop or rub. ABDOMEN: Soft nontender without masses, organomegaly or rebound. Bowel sounds n ormally active. No bruits. GENITALIA: Deferred. EXTREMITIES: As noted above. No edema. No calf tenderness. Cap refill less than 1.5 seconds. Dorsalis pedis and posterior tibial pulses 3+ and sy mmetrical. NEUROLOGICAL: GCS 15. Alert and oriented x3. Normal gait. Fluent speech. Cranial nerves II through XII intact. Sensorimotor and cerebellar normal. Normal tone. PSYCHIATRIC: Appropriate affect. Course - Re-evaluation Re-evalutation: 06/26/19 21:04 This lady obviously has a progressive cellulitis of the right forearm which is not responding to oral antibiotics. I am going to obtain a soft tissue x-ray to rule out free air in the tissue planes, retained foreign body, etc. I have given her some IV clindamycin. We also note that she has a new acute kidney injury with a creatinine of around 2.8. I requested a urinalysis. We are also going to draw a CK level for this lady. After I had a chance to review the remaining lab and imaging data we will speak with hospitalist regarding admission. 06/26/19 21:[address] Jimbo Cavazos. - Vital Signs Vital signs: Temp Pulse Resp BP Pulse Ox 98.0 F 85 24 H 125/68 96 06/26/19 16:36 06/26/19 16:36 06/26/19 16:36 06/26/19 16:36 06/26/19 16:36 - Laboratory Result Diagrams: 06/26/19 17:13 06/26/19 17:13 Laboratory results interpreted by me: 06/26/19 06/26/19 06/26/19 17:13 17:13 17:13 WBC 13.3 H Hgb 11.8 L Hct 34.4 L Lymph % (Auto) 11.7 L Absolute Neuts (auto) 10.6 H Seg Neutrophils % 79.3 H Sodium 134.7 L Potassium 3.4 L Carbon Dioxide 21 L BUN 34 H Creatinine 2.83 H Est GFR ( Amer) 21 L Est GFR (MDRD) Non-Af 17 L Magnesium 2.5 H - Diagnostic Test Radiology reviewed: Reports reviewed Radiology results interpreted by me: 06/26/19 21:57 Unremarkable right forearm film per radiologist. Discharge - Discharge Clinical Impression: Wound infection right forearm, Acute kidney injury Condition: Fair Disposition: ADMITTED INPATIENT Admitting Provider: Dirk (Hospitalist) Unit Admitted: Medical Floor Referrals: COLLIN CUELLAR MD [ACTIVE STAFF] - Follow up as needed
[2019-06-26] MEDS ORDERED: ACETAMINOPHEN 650 MG SUPP.RECT PR PRN (21:56)
[2019-06-26] MEDS ORDERED: MAGNESIUM HYDROXIDE SUSP 30 ML UDCUP PO PRN (21:56)
[2019-06-26] MEDS ORDERED: MAG HYDROX/AL HYDROX/SIMETH SUSP 30 ML UDCUP PO PRN (21:56)
[2019-06-26] MEDS ORDERED: NORMAL SALINE 1000 ML 1,000 ML IV SCH (22:00)
[2019-06-26] MEDS ORDERED: DOXYCYCLINE HYCLATE 100 MG in DEXTROSE 5%-WATER 250 ML IV SCH (22:00)
[2019-06-26] MEDS ORDERED: DOXYCYCLINE HYCLATE INJ 100 MG VIAL ONE (22:50)
[2019-06-26] MEDS: HYDROCODONE/ACETAMINOPHEN 5-325 MG TABLET PO PRN (23:12)
[2019-06-26] MEDS: HEPARIN SOD (PORCINE) 5,000 UNIT/ML 1 ML VIAL SUBCUT SCH (23:13)
[2019-06-27] MEDS ORDERED: GLUCAGON,HUMAN RECOMB 1 MG INJ SUBCUT PRN (00:49)
[2019-06-27] MEDS ORDERED: DEXTROSE 40% GEL 15 GM TUBE PO PRN ×2 (00:49)
[2019-06-27] MEDS ORDERED: DEXTROSE 50%-WATER 25 GM/50 ML DISP.SYRIN IV PRN ×2 (00:49)
[2019-06-27 01:33] LABS: APPEARANCE,URINE CLEAR; BILIRUBIN,URINE NEGATIVE (NEGATIVE); COLOR,URINE YELLOW; GLUCOSE, URINE NEGATIVE (NEGATIVE); KETONES,URINE NEGATIVE (NEGATIVE); PROTEIN,URINE 30 mg/dL (NEGATIVE); URINE SPECIFIC GRAVITY 1.011; UROBILINOGEN,URINE NEGATIVE mg/dL (<2.0)
[2019-06-27] MEDS ORDERED: LINEZOLID 600 MG/300 ML RTUPB IV ONE ×2 (02:15→02:18)
[2019-06-27 02:21] LABS: URINE BARBITURATES SCREEN NEGATIVE; URINE BENZODIAZEPINES SCREEN NEGATIVE; URINE COCAINE SCREEN NEGATIVE; URINE MARIJUANA (THC) SCREEN NEGATIVE; URINE METHADONE SCREEN NEGATIVE; URINE PHENCYCLIDINE SCREEN NEGATIVE
--- NOTE | 2019-06-27 04:59 | PDOC H&P ---
History of Present Illness Admission Date/PCP: 06/26/19 22:12 MONROE TRAN MD Patient complains of: Right arm pain and swelling History of Present Illness: KRISSY ALFORD is a 58 year old female with a past medical history of hypertension, Charly fundoplication, tobacco and crack cocaine last use within the week. She presents with 5 days of right arm pain and erythema following a scratch by her dog. Evaluation by primary care at the [facility] she was started on Bactrim but without significant improvement she seeks reevaluation the emergency department where she is found to have severe cellulitis And acute renal. She is started on empiric antibiotics and referred to the hospitalist for admission. She denies recent subcut or IV drug use. She admits to remote history of renal failure. Past Medical History Cardiac Medical History: Reports: Hypertension Denies: Coronary Artery Disease, Myocardial Infarction Pulmonary Medical History: Denies: Asthma, Bronchitis, Chronic Obstructive Pulmonary Disease (COPD), Pneumonia Neurological Medical History: Reports: Seizures - pseudo seizures Musculoskeltal Medical History: Reports: Arthritis - rheumatic arthritis Psychiatric Medical History: Reports: Bipolar Disorder, Depression, Post Traumatic Stress Disorder, Substance Abuse Hematology: Denies: Anemia Past Surgical History Past Surgical History: Reports: Hysterectomy Social History Information Source: Patient Smoking Status: Current Some Day Smoker Frequency of Alcohol Use: None Hx Recreational Drug Use: Yes Drugs: Cocaine - Advance Directive Resuscitation Status: Full Code Family History Family History: COPD Parental Family History Reviewed: Yes Children Family History Reviewed: Yes Sibling(s) Family History Reviewed.: Yes Medication/Allergy Home Medications: Alprazolam [Xanax 0.5 mg Tablet] 0.5 mg PO Q12 11/08/18 Aspirin [Ecotrin 81 mg EC Tablet] 81 mg PO DAILY 11/08/18 Buprenorphine [Butrans] 10 mcg TOP MO@1000 11/08/18 Dexlansoprazole [Dexilant 60 mg Capsule] 60 mg PO DAILY 11/08/18 Labetalol HCl [Normodyne 200 mg Tablet] 200 mg PO Q12 11/08/18 Lamotrigine [Lamictal] 150 mg PO Q12 11/08/18 Lurasidone HCl [Latuda 60 mg Tablet] 60 mg PO BID 11/08/18 Trazodone HCl [Desyrel] 100 mg PO QHS 11/08/18 Zolpidem Tartrate [Ambien Cr] 12.5 mg PO HSP PRN 11/08/18 Allergies/Adverse Reactions: lidocaine [Lidocaine] Allergy (Severe, Verified 11/08/18 08:08) Seizures codeine [Codeine] Allergy (Unknown, Verified 11/08/18 08:51) RASH Review of Systems Constitutional: ABSENT: chills, fever(s), headache(s), weight gain, weight loss Eyes: ABSENT: visual disturbances Ears: ABSENT: hearing changes Cardiovascular: ABSENT: chest pain, dyspnea on exertion, edema, orthropnea, palpitations Respiratory: ABSENT: cough, hemoptysis Gastrointestinal: ABSENT: abdominal pain, constipation, diarrhea, hematemesis, hematochezia, nausea, vomiting Genitourinary: ABSENT: dysuria, hematuria Musculoskeletal: ABSENT: joint swelling Integumentary: ABSENT: rash, wounds Neurological: ABSENT: abnormal gait, abnormal speech, confusion, dizziness, focal weakness, syncope Psychiatric: ABSENT: anxiety, depression, homidical ideation, suicidal ideation Endocrine: ABSENT: cold intolerance, heat intolerance, polydipsia, polyuria Hematologic/Lymphatic: ABSENT: easy bleeding, easy bruising Physical Exam Vital Signs: Temp Pulse Resp BP Pulse Ox 98.1 F 82 17 133/49 H 100 06/27/19 00:58 06/27/19 00:58 06/27/19 00:58 06/27/19 00:58 06/27/19 00:58 Intake & Output 06/25/19 06/26/19 06/27/19 11:59 11:59 11:59 Intake Total 600 Balance 600 Weight 66.8 kg General appearance: PRESENT: cooperative, severe distress, well-developed, well- nourished Head exam: PRESENT: atraumatic, normocephalic Eye exam: PRESENT: conjunctiva pink, EOMI, PERRLA. ABSENT: scleral icterus Ear exam: PRESENT: normal external ear exam Mouth exam: PRESENT: moist, tongue midline Neck exam: ABSENT: carotid bruit, JVD, lymphadenopathy, thyromegaly Respiratory exam: PRESENT: clear to auscultation rajeev. ABSENT: rales, rhonchi, wheezes Cardiovascular exam: PRESENT: RRR. ABSENT: diastolic murmur, rubs, systolic murmur Pulses: PRESENT: normal dorsalis pedis pul Vascular exam: PRESENT: normal capillary refill GI/Abdominal exam: PRESENT: normal bowel sounds, soft. ABSENT: distended, guarding, mass, organolmegaly, rebound, tenderness Rectal exam: PRESENT: deferred Extremities exam: PRESENT: tenderness - Right forearm with circumferential erythema 22 x 8 superficial fluctuance with swelling extending from the hand to upper arm, +2 edema Neurological exam: PRESENT: alert, awake, oriented to person, oriented to place, oriented to time, oriented to situation, CN II-XII grossly intact. ABSENT: motor sensory deficit Psychiatric exam: PRESENT: anxious, appropriate affect, normal mood. ABSENT: homicidal ideation, suicidal ideation Skin exam: PRESENT: erythema, skin tears, warm, other - Right forearm with circumferential erythema 22 x 8 superficial fluctuance with swelling extending from the hand to upper arm. ABSENT: cyanosis, dry, intact, rash Results Laboratory Results: 06/26/19 17:13 06/26/19 17:13 06/26/19 06/26/19 06/26/19 17:13 17:13 17:13 WBC 13.3 H RBC 4.15 Hgb 11.8 L Hct 34.4 L MCV 83 MCH 28.3 MCHC 34.2 RDW 13.2 Plt Count 428 Seg Neutrophils % 79.3 H Sodium 134.7 L Potassium 3.4 L Chloride 99 Carbon Dioxide 21 L Anion Gap 15 BUN 34 H Creatinine 2.83 H Est GFR ( Amer) 21 L Glucose 100 Lactic Acid Calcium 9.6 Magnesium 2.5 H Total Bilirubin 0.3 AST 20 Alkaline Phosphatase 104 Total Protein 7.5 Albumin 4.2 Urine Color Urine Appearance Urine pH Ur Specific [place] Urine Protein Urine Glucose (UA) Urine Ketones Urine Blood Urine RBC (Auto) 06/26/19 06/27/19 18:20 01:10 WBC RBC Hgb Hct MCV MCH MCHC RDW Plt Count Seg Neutrophils % Sodium Potassium Chloride Carbon Dioxide Anion Gap BUN Creatinine Est GFR ( Amer) Glucose Lactic Acid 1.1 Calcium Magnesium Total Bilirubin AST Alkaline Phosphatase Total Protein Albumin Urine Color YELLOW Urine Appearance CLEAR Urine pH 5.0 Ur Specific [place] 1.011 Urine Protein 30 H Urine Glucose (UA) NEGATIVE Urine Ketones NEGATIVE Urine Blood NEGATIVE Urine RBC (Auto) 0 06/26/19 06/26/19 17:13 17:13 Creatine Kinase 130 Troponin I < 0.012 Impressions: Forearm X-Ray 06/26/19 20:32 IMPRESSION: Unremarkable exam copyright 2011 [employer]- All Rights Reserved Assessment and Plan - Diagnosis (1) Right arm cellulitis Is this a current diagnosis for this admission?: Yes Plan: Complicated by history of IV drug use, suspect current injury from subcut drug use. Zyvox ordered for MRSA coverage with underlying acute renal failure. Please follow-up CBC, blood culture and surgical consult (2) Substance abuse Is this a current diagnosis for this admission?: Yes Plan: Benzodiazepine as needed, mental health consult (3) Anemia Is this a current diagnosis for this admission?: Yes Plan: Complicated by Charly fundoplication, follow-up anemia labs (4) Acute renal failure Is this a current diagnosis for this admission?: Yes Plan: Likely secondary to Bactrim, avoid nephrotoxic meds and doses, IV fluid challenge, follow-up chemistry (5) Tobacco abuse Is this a current diagnosis for this admission?: Yes Plan: Tobacco cessation counseling performed, nicotine replacement options discussed. - Time Time Spent with patient: 25-34 minutes - Inpatient Certification Medical Necessity: Need Close Monitoring Due to Risk of Patient Decompensation
[2019-06-27] MEDS: HEPARIN SOD (PORCINE) 5,000 UNIT/ML 1 ML VIAL SUBCUT SCH ×3 (05:08→21:24)
[2019-06-27 05:20] LABS: ABSOLUTE BASOPHILS # (AUTO) 0.1 10^3/uL (0.0-0.2); ABSOLUTE EOSINOPHILS # (AUTO) 0.1 10^3/uL (0.0-0.6); ABSOLUTE LYMPHOCYTES (AUTO) 1.8 10^3/uL (0.5-4.7); ABSOLUTE MONOCYTES (AUTO) 0.9 10^3/uL (0.1-1.4); BASOPHILS % (AUTO) 0.6 % (0-2); EOSINOPHILS % (AUTO) 1.5 % (0-6); HEMATOCRIT 31.4 % (36.0-47.0); LYMPHOCYTES % (AUTO) 18.2 % (13-45); MEAN CORPUSCULAR HEMOGLOBIN 28.7 pg (27.0-33.4); MEAN CORPUSCULAR VOLUME 82 fl (80-97); MONOCYTES % (AUTO) 9.1 % (3-13); PLATELET COUNT 403 10^3/uL (150-450); RED BLOOD COUNT 3.82 10^6/uL (3.72-5.28); SEGMENTED NEUTROPHILS % (AUTO) 70.6 % (42-78); TOTAL CELLS COUNTED % (AUTO) 100 %; WHITE BLOOD COUNT 9.9 10^3/uL (4.0-10.5)
[2019-06-27 05:26] LABS: ABSOLUTE RETICS # 0.047 10^6/uL (0.028-0.122)
--- NOTE | 2019-06-27 05:31 | PDOC CONSULTATION ---
Consultation Consult Date: 06/27/19 Provider Consulted: SURGICAL SURGICALIST Consult reason:: Right upper extremity skin/soft tissue infection History of Present Illness Admission Date/PCP: 06/26/19 22:12 MONROE TRAN MD Patient complains of: Right upper extremity pain, swelling, erythema, and bulla formation. History of Present Illness: KRISSY ALFORD is a 58 year old female seen in consultation at the request of the hospitalist service. The patient was admitted to the hospital, after having sustained a dog scratch to the right upper extremity 5 days ago. The patient reports increasing swelling and pain. The patient was started on Bactrim, which did not help. The patient reports that the redness, swelling, and pain continued to increase. Yesterday, bullae began to form on the dorsal surface of the distal right upper extremity. Patient denies any overt fevers or chills, but she does report erythema, edema, and pain. Her range of motion is not currently affected per her report. The pain is characterized as throbbing and soreness. She reports that it is a 6 out of 10 at present. She has no paresthesias associated with it. Nothing makes it better. Palpation and movement make it worse. Currently the patient denies chest pain, shortness of breath, nausea, vomiting, dizziness, orthostasis, headache, blurry vision. Past Medical History Cardiac Medical History: Reports: Hypertension Denies: Coronary Artery Disease, Myocardial Infarction Pulmonary Medical History: Denies: Asthma, Bronchitis, Chronic Obstructive Pulmonary Disease (COPD), Pneumonia Neurological Medical History: Reports: Seizures - pseudo seizures Musculoskeltal Medical History: Reports: Arthritis - rheumatic arthritis Psychiatric Medical History: Reports: Bipolar Disorder, Post Traumatic Stress Disorder Hematology: Denies: Anemia Past Surgical History Past Surgical History: Reports: Hysterectomy Social History Smoking Status: Former Smoker Hx Recreational Drug Use: No Hx Prescription Drug Abuse: No Family History Family History: Reviewed & Not Pertinent Parental Family History Reviewed: Yes Children Family History Reviewed: Yes Sibling(s) Family History Reviewed.: Yes Medication/Allergy Home Medications: Alprazolam [Xanax 0.5 mg Tablet] 0.5 mg PO Q12 11/08/18 Aspirin [Ecotrin 81 mg EC Tablet] 81 mg PO DAILY 11/08/18 Buprenorphine [Butrans] 10 mcg TOP MO@1000 11/08/18 Dexlansoprazole [Dexilant 60 mg Capsule] 60 mg PO DAILY 11/08/18 Labetalol HCl [Normodyne 200 mg Tablet] 200 mg PO Q12 11/08/18 Lamotrigine [Lamictal] 150 mg PO Q12 11/08/18 Lurasidone HCl [Latuda 60 mg Tablet] 60 mg PO BID 11/08/18 Trazodone HCl [Desyrel] 100 mg PO QHS 11/08/18 Zolpidem Tartrate [Ambien Cr] 12.5 mg PO HSP PRN 11/08/18 Allergies/Adverse Reactions: lidocaine [Lidocaine] Allergy (Severe, Verified 11/08/18 08:08) Seizures codeine [Codeine] Allergy (Unknown, Verified 11/08/18 08:51) RASH Review of Systems Constitutional: ABSENT: anorexia, chills, fatigue, headache(s), weakness Eyes: ABSENT: visual disturbances Ears: ABSENT: hearing changes Nose, Mouth, and Throat: ABSENT: mouth pain, sore throat Cardiovascular: ABSENT: chest pain Respiratory: ABSENT: cough Gastrointestinal: ABSENT: abdominal pain, bloating, nausea, vomiting Genitourinary: ABSENT: dysuria Musculoskeletal: ABSENT: back pain Integumentary: PRESENT: other - Edema, erythema, and pain of the distal right upper extremity with bulla formation. ABSENT: diaphoresis, pruritus Neurological: ABSENT: confusion, convulsions, dizziness Psychiatric: ABSENT: anxiety, depression Endocrine: ABSENT: cold intolerance, heat intolerance Hematologic/Lymphatic: ABSENT: easy bleeding, easy bruising Physical Exam Vital Signs: Temp Pulse Resp BP Pulse Ox 97.6 F 87 20 110/55 L 100 06/26/19 23:17 06/26/19 23:17 06/26/19 23:17 06/26/19 23:17 06/26/19 23:17 Intake & Output 06/25/19 06/26/19 06/27/19 06:59 06:59 06:59 Intake Total 50 Balance 50 Weight 65.4 kg General appearance: PRESENT: no acute distress, cooperative Head exam: PRESENT: atraumatic, normocephalic Eye exam: PRESENT: EOMI, PERRLA. ABSENT: scleral icterus Mouth exam: PRESENT: moist, neck supple Neck exam: ABSENT: meningismus, tenderness, thyromegaly, tracheal deviation Respiratory exam: PRESENT: unlabored. ABSENT: tachypnea, wheezes Cardiovascular exam: ABSENT: tachycardia Pulses: PRESENT: normal radial pulses GI/Abdominal exam: PRESENT: soft. ABSENT: firm, guarding, rigid, tenderness Rectal exam: PRESENT: deferred Extremities exam: PRESENT: other - See skin exam. ABSENT: clubbing Musculoskeletal exam: PRESENT: full ROM Neurological exam: PRESENT: alert, awake, oriented to person, oriented to place Psychiatric exam: ABSENT: agitated, anxious, depressed Focused psych exam: ABSENT: delusional Skin exam: PRESENT: erythema, other - Edema, erythema, and bullae formation at the distal right upper extremity, worse on the dorsal aspect, but extending circumferentially below the elbow. Results Laboratory Results: 06/26/19 17:13 06/26/19 17:13 06/26/19 06/26/19 06/26/19 17:13 17:13 17:13 WBC 13.3 H RBC 4.15 Hgb 11.8 L Hct 34.4 L MCV 83 MCH 28.3 MCHC 34.2 RDW 13.2 Plt Count 428 Seg Neutrophils % 79.3 H Sodium 134.7 L Potassium 3.4 L Chloride 99 Carbon Dioxide 21 L Anion Gap 15 BUN 34 H Creatinine 2.83 H Est GFR ( Amer) 21 L Glucose 100 Lactic Acid Calcium 9.6 Magnesium 2.5 H Total Bilirubin 0.3 AST 20 Alkaline Phosphatase 104 Total Protein 7.5 Albumin 4.2 06/26/19 18:20 WBC RBC Hgb Hct MCV MCH MCHC RDW Plt Count Seg Neutrophils % Sodium Potassium Chloride Carbon Dioxide Anion Gap BUN Creatinine Est GFR ( Amer) Glucose Lactic Acid 1.1 Calcium Magnesium Total Bilirubin AST Alkaline Phosphatase Total Protein Albumin 06/26/19 06/26/19 17:13 17:13 Creatine Kinase 130 Troponin I < 0.012 Impressions: Forearm X-Ray 06/26/19 20:32 IMPRESSION: Unremarkable exam copyright 2011 [employer]- All Rights Reserved Assessment & Plan - Diagnosis (1) Skin infection, bacterial Is this a current diagnosis for this admission?: Yes - Plan Summary Plan Summary: This is a 58-year-old female with a 5-day history of a scratch/wound to the right upper extremity. She has developed a superficial skin and soft tissue infection, that is progressing. She has been on Bactrim, with no improvement. The patient has purulence and bullae formation. I believe the nonviable skin will need to be debrided and cleaned. Upon my evaluation, the patient is eating a fruit cup. I am unable to put her to sleep for 8 hours after this occurrence. I will make her n.p.o. after midnight. Plan for surgical intervention in the morning. After surgery, the wound should be treated like a burn, with Silvadene cream. Surgery will continue to follow.
[2019-06-27 05:49] LABS: IRON(TIBC) 23.1 ug/dL (37-170)
[2019-06-27 05:54] LABS: ANION GAP 15 (5-19); BLOOD UREA NITROGEN 37 mg/dL (7-20); CALCIUM 9.4 mg/dL (8.4-10.2); CARBON DIOXIDE 21 mmol/L (22-30); CHLORIDE 100 mmol/L (98-107); GLUCOSE 119 mg/dL (75-110); POTASSIUM 3.3 mmol/L (3.6-5.0)
[2019-06-27] MEDS: MORPHINE SULFATE 10 MG/ML INJ IV PRN ×3 (06:28→18:50)
[2019-06-27] MEDS ORDERED: ACETAMINOPHEN 650 MG SUPP.RECT PR PRN (07:20)
[2019-06-27] MEDS ORDERED: LINEZOLID 600 MG/300 ML RTUPB IV SCH (10:00)
--- NOTE | 2019-06-27 12:07 | PDOC PROGRESS REPORT ---
Subjective Progress Note for:: 06/27/19 Subjective:: KRISSY ALFORD is a 58 year old female with a past medical history of hypertension, Charly fundoplication, tobacco and crack cocaine last use within the week. She presents with 5 days of right arm pain and erythema following a scratch by her dog. Evaluation by primary care at the [facility] she was started on Bactrim but without significant improvement she seeks reevaluation the emergency department where she is found to have severe cellulitis And acute renal. She is started on empiric antibiotics and referred to the hospitalist for admission. She denies recent subcut or IV drug use. She admits to remote history of renal failure. 06/27/2019. No acute events overnight. Patient is pending I&D by surgery. Still having significant right upper extremity pain however improving compared to admission. Denies any nausea, vomiting, diarrhea, constipation or any urinary symptoms. Reason For Visit: ARF CELLULITIS Physical Exam Vital Signs: Temp Pulse Resp BP Pulse Ox 97.9 F 71 18 133/49 H 98 06/27/19 08:15 06/27/19 08:15 06/27/19 08:15 06/27/19 00:58 06/27/19 08:15 Intake & Output 06/26/19 06/27/19 06/28/19 06:59 06:59 06:59 Intake Total 600 Balance 600 Weight 66.8 kg General appearance: PRESENT: no acute distress, well-developed, well-nourished Head exam: PRESENT: atraumatic, normocephalic Respiratory exam: PRESENT: clear to auscultation rajeev. ABSENT: rales, rhonchi, wheezes Cardiovascular exam: PRESENT: RRR. ABSENT: diastolic murmur, rubs, systolic murmur GI/Abdominal exam: PRESENT: normal bowel sounds, soft. ABSENT: distended, guarding, mass, organolmegaly, rebound, tenderness Extremities exam: PRESENT: full ROM. ABSENT: calf tenderness, clubbing, pedal edema Neurological exam: PRESENT: alert, awake, oriented to person, oriented to place, oriented to time, oriented to situation, CN II-XII grossly intact. ABSENT: motor sensory deficit Skin exam: PRESENT: other - Right medial elbow 10 x 10 cm bolus cellulitis, with surrounding erythema. No active discharge. Neurovascularly intact. Results Laboratory Results: 06/27/19 04:08 06/27/19 04:08 06/26/19 06/26/19 06/26/19 17:13 17:13 17:13 WBC 13.3 H RBC 4.15 Hgb 11.8 L Hct 34.4 L MCV 83 MCH 28.3 MCHC 34.2 RDW 13.2 Plt Count 428 Seg Neutrophils % 79.3 H Retic Count (auto) Sodium 134.7 L Potassium 3.4 L Chloride 99 Carbon Dioxide 21 L Anion Gap 15 BUN 34 H Creatinine 2.83 H Est GFR ( Amer) 21 L Glucose 100 Lactic Acid Calcium 9.6 Magnesium 2.5 H Iron TIBC % Saturation Ferritin Total Bilirubin 0.3 AST 20 Alkaline Phosphatase 104 Total Protein 7.5 Albumin 4.2 Vitamin B12 Folate Urine Color Urine Appearance Urine pH Ur Specific Rolfe Urine Protein Urine Glucose (UA) Urine Ketones Urine Blood Urine RBC (Auto) 06/26/19 06/27/19 06/27/19 18:20 01:10 04:08 WBC 9.9 RBC 3.82 Hgb 11.0 L Hct 31.4 L MCV 82 MCH 28.7 MCHC 35.0 RDW 13.0 Plt Count 403 Seg Neutrophils % 70.6 Retic Count (auto) Sodium Potassium Chloride Carbon Dioxide Anion Gap BUN Creatinine Est GFR ( Amer) Glucose Lactic Acid 1.1 Calcium Magnesium Iron TIBC % Saturation Ferritin Total Bilirubin AST Alkaline Phosphatase Total Protein Albumin Vitamin B12 Folate Urine Color YELLOW Urine Appearance CLEAR Urine pH 5.0 Ur Specific Rolfe 1.011 Urine Protein 30 H Urine Glucose (UA) NEGATIVE Urine Ketones NEGATIVE Urine Blood NEGATIVE Urine RBC (Auto) 0 06/27/19 06/27/19 06/27/19 04:08 04:08 04:08 WBC RBC Hgb Hct MCV MCH MCHC RDW Plt Count Seg Neutrophils % Retic Count (auto) 1.20 Sodium 136.2 L Potassium 3.3 L Chloride 100 Carbon Dioxide 21 L Anion Gap 15 BUN 37 H Creatinine 2.38 H Est GFR ( Amer) 25 L Glucose 119 H Lactic Acid Calcium 9.4 Magnesium Iron 23.1 L TIBC 292 % Saturation 8 Ferritin 162.00 Total Bilirubin AST Alkaline Phosphatase Total Protein Albumin Vitamin B12 320.0 Folate 19.40 Urine Color Urine Appearance Urine pH Ur Specific Rolfe Urine Protein Urine Glucose (UA) Urine Ketones Urine Blood Urine RBC (Auto) 06/26/19 06/26/19 17:13 17:13 Creatine Kinase 130 Troponin I < 0.012 Impressions: Forearm X-Ray 06/26/19 20:32 IMPRESSION: Unremarkable exam copyright 2011 [employer]- All Rights Reserved Assessment and Plan - Diagnosis (1) Right arm cellulitis Is this a current diagnosis for this admission?: Yes Plan: Complicated by history of IV drug use, suspect current injury from subcut drug use. Zyvox ordered for MRSA coverage with underlying acute renal failure. Please follow-up CBC, blood culture and surgical consult (2) Substance abuse Is this a current diagnosis for this admission?: Yes Plan: Benzodiazepine as needed, mental health consult (3) Tobacco abuse Is this a current diagnosis for this admission?: Yes Plan: Tobacco cessation counseling performed, nicotine replacement options discussed. (4) Acute renal failure Is this a current diagnosis for this admission?: Yes Plan: Likely secondary to Bactrim, avoid nephrotoxic meds and doses, IV fluid challenge, follow-up chemistry
[2019-06-27] MEDS ORDERED: CEFAZOLIN INJ 1 GM VIAL ONE (13:49)
[2019-06-27] MEDS ORDERED: MIDAZOLAM 2 MG/2 ML INJ ONE (13:50)
[2019-06-27] MEDS ORDERED: FENTANYL CITRATE INJ/PF 100 MCG/2 ML AMPUL ONE (13:50)
[2019-06-27] MEDS ORDERED: PROPOFOL INJ 200 MG/20 ML VIAL IV ONE (13:50)
[2019-06-27] MEDS ORDERED: KETAMINE HCL INJ 500 MG/10 ML VIAL ONE (13:57)
[2019-06-27] MEDS ORDERED: DIPHENHYDRAMINE HCL 50 MG/ML VIAL IV PRN (14:30)
[2019-06-27] MEDS ORDERED: MORPHINE SULFATE 10 MG/ML INJ IV PRN (14:30)
[2019-06-27] MEDS ORDERED: OXYCODONE-ACETAMINOPHEN 5-325 MG TABLET PO PRN ×2 (14:30)
[2019-06-27] MEDS ORDERED: FENTANYL CITRATE INJ/PF 100 MCG/2 ML AMPUL IV PRN ×3 (14:30)
[2019-06-27] MEDS ORDERED: MEPERIDINE HCL/PF INJ 25 MG/1 ML DISP.SYRIN IV PRN (14:30)
[2019-06-27] MEDS ORDERED: PROMETHAZINE HCL INJ 25 MG/1 ML VIAL IV PRN (14:30)
--- NOTE | 2019-06-27 15:05 | Operative Report ---
Operative Report DATE OF SURGERY: 06/27/19 PREOPERATIVE DIAGNOSIS: Infected right forearm due to dog scratch POSTOPERATIVE DIAGNOSIS: Same OPERATION: Sharp debridement of right forearm infection due to dog's scratch SURGEON: LAVELLE DANIELS ANESTHESIA: Moderate Sedation TISSUE REMOVED OR ALTERED: Pus sent for culture and sensitivity COMPLICATIONS: None ESTIMATED BLOOD LOSS: 25 cc QUANTITATIVE BLOOD LOSS: 25 INTRAOPERATIVE FINDINGS: Necrotic skin with subcutaneous involvement with pus on the right forearm anterior aspect roughly measuring about 11 cm long by 6 cm wide. PROCEDURE: After adequate IV sedation the right arm was then prepped and draped in usual sterile fashion. Appropriate timeout was then called. Next the right anterior forearm has some necrotic skin and on squeezing there is some pus noted. Specimen was then obtained for culture and sensitivity. Next the skin and subcu was then scraped with 10 blade. There was extensive necrosis of the skin and on the superficial subcutaneous area. The bleeders were then controlled with the use of cautery. Operative site roughly measured about 11 cm long by 6 cm wide. After adequate hemostasis noted wound was then covered with Xeroform gauze and wrapped with 4 x 4 ABD and Kerlix. Patient tolerated procedure well. Patient brought to PACU in satisfactory condition.
[2019-06-27] MEDS: LINEZOLID 600 MG/300 ML RTUPB IV SCH (18:51)
[2019-06-27] MEDS: LURASIDONE HCL 60 MG TABLET PO SCH (18:51)
[2019-06-27] MEDS: NORMAL SALINE 1000 ML 1,000 ML IV PRN (21:22)
[2019-06-27] MEDS: LAMOTRIGINE 100 MG TABLET PO SCH (21:24)
[2019-06-27] MEDS: HYDROCODONE/ACETAMINOPHEN 5-325 MG TABLET PO PRN (21:25)
[2019-06-27] MEDS: ASPIRIN 81 MG TABLET, ENT COATED PO SCH (21:25)
[2019-06-27] MEDS: GABAPENTIN 300 MG CAPSULE PO SCH (21:25)
[2019-06-27] MEDS: TRAZODONE HCL 50 MG TABLET PO SCH (21:26)
[2019-06-27] MEDS ORDERED: LAMOTRIGINE 150 MG PO SCH (22:00)
[2019-06-28] MEDS: MORPHINE SULFATE 10 MG/ML INJ IV PRN (03:55)
[2019-06-28] MEDS: HEPARIN SOD (PORCINE) 5,000 UNIT/ML 1 ML VIAL SUBCUT SCH ×3 (05:48→21:49)
[2019-06-28] MEDS: GABAPENTIN 300 MG CAPSULE PO SCH ×3 (05:48→21:48)
[2019-06-28] MEDS: LINEZOLID 600 MG/300 ML RTUPB IV SCH ×2 (05:48→17:23)
[2019-06-28 07:19] LABS: HEMATOCRIT 29.8 % (36.0-47.0); HEMOGLOBIN 10.3 g/dL (12.0-15.5); MEAN CORPUSCULAR HEMOGLOBIN 29.2 pg (27.0-33.4); MEAN CORPUSCULAR HGB CONC 34.8 g/dL (32.0-36.0); MEAN CORPUSCULAR VOLUME 84 fl (80-97); PLATELET COUNT 399 10^3/uL (150-450); RED BLOOD COUNT 3.54 10^6/uL (3.72-5.28); RED CELL DISTRIBUTION WIDTH 13.1 % (11.5-14.0); WHITE BLOOD COUNT 4.9 10^3/uL (4.0-10.5)
[2019-06-28 07:36] LABS: ANION GAP 10 (5-19); BLOOD UREA NITROGEN 19 mg/dL (7-20); CALCIUM 8.6 mg/dL (8.4-10.2); CARBON DIOXIDE 22 mmol/L (22-30); CHLORIDE 103 mmol/L (98-107); GLUCOSE 190 mg/dL (75-110); POTASSIUM 3.8 mmol/L (3.6-5.0)
[2019-06-28 08:06] LABS: ABSOLUTE MONOCYTES # (MANUAL) 0.5 10^3/uL (0.1-1.4); BASOPHILS % (MANUAL) 1 % (0-2); EOSINOPHILS % (MANUAL) 5 % (0-6); LYMPHOCYTES % (MANUAL) 26 % (13-45); MONOCYTES % (MANUAL) 11 % (3-13); SEGMENTED NEUTROPHILS % (MAN) 42 % (42-78); TOTAL CELLS COUNTED 100
[2019-06-28 08:07] LABS: POLYCHROMASIA SLIGHT
[2019-06-28 08:08] LABS: PLATELET COMMENT ADEQUATE
[2019-06-28] MEDS: LURASIDONE HCL 60 MG TABLET PO SCH ×2 (08:41→17:23)
--- NOTE | 2019-06-28 09:01 | PDOC PROGRESS REPORT ---
Subjective Progress Note for:: 06/28/19 Subjective:: rt arm dog scratch infection Reason For Visit: ARF CELLULITIS Physical Exam Vital Signs: Temp Pulse Resp BP Pulse Ox 98.4 F 77 18 107/51 L 94 06/28/19 01:00 06/28/19 01:00 06/28/19 01:00 06/28/19 01:00 06/28/19 01:00 Intake & Output 06/27/19 06/28/19 06/29/19 06:59 06:59 06:59 Intake Total 600 1630 Output Total 2615 Balance 600 -985 Weight 66.8 kg General appearance: PRESENT: no acute distress Head exam: PRESENT: normocephalic Eye exam: PRESENT: EOMI Ear exam: PRESENT: normal external ear exam Mouth exam: PRESENT: moist Teeth exam: PRESENT: poor dentation Neck exam: PRESENT: full ROM Respiratory exam: PRESENT: clear to auscultation rajeev Cardiovascular exam: PRESENT: RRR Pulses: PRESENT: normal radial pulses, normal femoral pulses Vascular exam: PRESENT: normal capillary refill Breast: PRESENT: Normal GI/Abdominal exam: PRESENT: soft Rectal exam: PRESENT: deferred Extremities exam: PRESENT: other - right dorsal forarm with 15cm area by 6cm area of skin desquamation, cellulitis improved Psychiatric exam: PRESENT: appropriate affect Skin exam: PRESENT: dry Results Laboratory Results: 06/28/19 06:15 06/28/19 06:15 06/28/19 06/28/19 06:15 06:15 WBC 4.9 RBC 3.54 L Hgb 10.3 L Hct 29.8 L MCV 84 MCH 29.2 MCHC 34.8 RDW 13.1 Plt Count 399 Seg Neutrophils % Not Reportable Sodium 135.1 L Potassium 3.8 Chloride 103 Carbon Dioxide 22 Anion Gap 10 BUN 19 Creatinine 1.13 Est GFR ( Amer) > 60 Glucose 190 H Calcium 8.6 06/26/19 17:13 Arm Gram Stain - Final 06/26/19 17:13 Arm Wound Culture - Final Mrsa (Meth Resis Staph Aureus) 06/26/19 06/26/19 17:13 17:13 Creatine Kinase 130 Troponin I < 0.012 Impressions: Forearm X-Ray 06/26/19 20:32 IMPRESSION: Unremarkable exam copyright 2011 [employer]- All Rights Reserved Assessment & Plan - Plan Summary Plan Summary: rt forarm superficial skin infection +mrsa s/p dog scratch. now with decreasing cellulitis + mrsa recommend daily dressing changes with xeroform kaylie cobos pt could be discharged from [facility] with home health.
[2019-06-28] MEDS: HYDROCODONE/ACETAMINOPHEN 5-325 MG TABLET PO PRN ×2 (09:06→20:04)
[2019-06-28] MEDS: LABETALOL HCL 200 MG TABLET PO SCH (09:07)
[2019-06-28] MEDS: LAMOTRIGINE 100 MG TABLET PO SCH ×2 (09:10→21:55)
[2019-06-28] MEDS: NORMAL SALINE 1000 ML 1,000 ML IV PRN (12:54)
--- NOTE | 2019-06-28 15:41 | PDOC PROGRESS REPORT ---
Subjective Progress Note for:: 06/28/19 Subjective:: KRISSY ALFORD is a 58 year old female with a past medical history of hypertension, Charly fundoplication, tobacco and crack cocaine last use within the week. She presents with 5 days of right arm pain and erythema following a scratch by her dog. Evaluation by primary care at the [facility] she was started on Bactrim but without significant improvement she seeks reevaluation the emergency department where she is found to have severe cellulitis And acute renal. She is started on empiric antibiotics and referred to the hospitalist for admission. She denies recent subcut or IV drug use. She admits to remote history of renal failure. 06/27/2019. No acute events overnight. Patient is pending I&D by surgery. Still having significant right upper extremity pain however improving compared to admission. Denies any nausea, vomiting, diarrhea, constipation or any urinary symptoms. 06/28/2019. No acute events overnight. Status post right upper extremity I&D. Patient complaining of persistent right upper extremity pain otherwise denies any fever, chills, nausea, vomiting, diarrhea, constipation or any urinary symptoms. Wound culture growing MSSA. Blood culture growing gram-positive cocci in clusters pending sensitivity. Possible discharge home tomorrow. Reason For Visit: ARF CELLULITIS Physical Exam Vital Signs: Temp Pulse Resp BP Pulse Ox 98.9 F 67 20 117/78 97 06/28/19 13:00 06/28/19 13:00 06/28/19 13:00 06/28/19 13:00 06/28/19 13:00 Intake & Output 06/27/19 06/28/19 06/29/19 06:59 06:59 06:59 Intake Total 600 1630 1560 Output Total 2615 Balance 600 -985 1560 Weight 66.8 kg General appearance: PRESENT: no acute distress, well-developed, well-nourished Cardiovascular exam: PRESENT: RRR. ABSENT: diastolic murmur, rubs, systolic murmur GI/Abdominal exam: PRESENT: normal bowel sounds, soft. ABSENT: distended, guarding, mass, organolmegaly, rebound, tenderness Extremities exam: PRESENT: full ROM, other - Right forearm status post I&D, wound looks clean.. ABSENT: calf tenderness, clubbing, pedal edema Neurological exam: PRESENT: alert, awake, oriented to person, oriented to place, oriented to time, oriented to situation, CN II-XII grossly intact. ABSENT: motor sensory deficit Results Laboratory Results: 06/28/19 06:15 06/28/19 06:15 06/28/19 06/28/19 06:15 06:15 WBC 4.9 RBC 3.54 L Hgb 10.3 L Hct 29.8 L MCV 84 MCH 29.2 MCHC 34.8 RDW 13.1 Plt Count 399 Seg Neutrophils % Not Reportable Sodium 135.1 L Potassium 3.8 Chloride 103 Carbon Dioxide 22 Anion Gap 10 BUN 19 Creatinine 1.13 Est GFR ( Amer) > 60 Glucose 190 H Calcium 8.6 06/26/19 17:13 Arm Gram Stain - Final 06/26/19 17:13 Arm Wound Culture - Final Mrsa (Meth Resis Staph Aureus) 06/26/19 06/26/19 17:13 17:13 Creatine Kinase 130 Troponin I < 0.012 Impressions: Forearm X-Ray 06/26/19 20:32 IMPRESSION: Unremarkable exam copyright 2011 [employer]- All Rights Reserved Assessment and Plan - Diagnosis (1) Bacteremia Is this a current diagnosis for this admission?: Yes Plan: Blood culture positive for gram-positive cocci in clusters pending sensitivity. Likely MSSA source of infection right upper extremity cellulitis. Day 3 IV antibiotics. Day 3 IV linezolid. Follow-up culture and sensitivity. Switch to p.o. antibiotics once sensitivity available. (2) Right arm cellulitis Is this a current diagnosis for this admission?: Yes Plan: Due to MSSA. Complicated by history of IV drug use. Status post I&D by surgery. Wound culture growing MSSA. (3) Substance abuse Is this a current diagnosis for this admission?: Yes Plan: Benzodiazepine as needed, monitor for withdrawals. (4) Tobacco abuse Is this a current diagnosis for this admission?: Yes Plan: Tobacco cessation counseling performed, nicotine replacement options discussed. (5) Acute renal failure Qualifiers: Acute renal failure type: unspecified Qualified Code(s): N17.9 - Acute kidney failure, unspecified Is this a current diagnosis for this admission?: Yes Plan: Resolved. Likely secondary to Bactrim Monitor volume status and electrolyte replace as needed. Avoid nephrotoxic meds.
[2019-06-28] MEDS: ASPIRIN 81 MG TABLET, ENT COATED PO SCH (21:48)
[2019-06-28] MEDS: TRAZODONE HCL 50 MG TABLET PO SCH (21:48)
[2019-06-29] MEDS: NORMAL SALINE 1000 ML 1,000 ML IV PRN (04:20)
[2019-06-29] MEDS: HYDROCODONE/ACETAMINOPHEN 5-325 MG TABLET PO PRN ×3 (04:20→22:20)
[2019-06-29] MEDS: HEPARIN SOD (PORCINE) 5,000 UNIT/ML 1 ML VIAL SUBCUT SCH ×3 (05:08→21:46)
[2019-06-29] MEDS: GABAPENTIN 300 MG CAPSULE PO SCH ×3 (05:08→21:46)
[2019-06-29] MEDS: LINEZOLID 600 MG/300 ML RTUPB IV SCH (05:08)
[2019-06-29] MEDS: LURASIDONE HCL 60 MG TABLET PO SCH ×2 (07:57→18:40)
[2019-06-29] MEDS: MORPHINE SULFATE 10 MG/ML INJ IV PRN ×2 (08:53→18:44)
[2019-06-29] MEDS ORDERED: ACETAMINOPHEN 325 MG TABLET PO PRN (10:04)
[2019-06-29] MEDS: LABETALOL HCL 200 MG TABLET PO SCH (11:10)
[2019-06-29] MEDS: LAMOTRIGINE 100 MG TABLET PO SCH ×2 (11:10→21:46)
--- NOTE | 2019-06-29 11:25 | PDOC PROGRESS REPORT ---
Subjective Progress Note for:: 06/29/19 Subjective:: KRISSY ALFORD is a 58 year old female with a past medical history of hypertension, Charly fundoplication, tobacco and crack cocaine last use within the week. She presents with 5 days of right arm pain and erythema following a scratch by her dog. Evaluation by primary care at the [facility] she was started on Bactrim but without significant improvement she seeks reevaluation the emergency department where she is found to have severe cellulitis And acute renal. She is started on empiric antibiotics and referred to the hospitalist for admission. She denies recent subcut or IV drug use. She admits to remote history of renal failure. 06/27/2019. No acute events overnight. Patient is pending I&D by surgery. Still having significant right upper extremity pain however improving compared to admission. Denies any nausea, vomiting, diarrhea, constipation or any urinary symptoms. 06/28/2019. No acute events overnight. Status post right upper extremity I&D. Patient complaining of persistent right upper extremity pain otherwise denies any fever, chills, nausea, vomiting, diarrhea, constipation or any urinary symptoms. Wound culture growing MSSA. Blood culture growing gram-positive cocci in clusters pending sensitivity. Possible discharge home tomorrow. 06/29/2019. No acute events overnight. Patient complaining of persistent right upper extremity pain, denies any fever, chills, nausea, vomiting, diarrhea, constipation or any urinary symptoms. Patient complaining of generalized weakness and chronic vertigo would like to see if she could be sent to short- term rehab instead of home as she feels that she will not be able to take care of herself. Reason For Visit: ARF CELLULITIS Physical Exam Vital Signs: Temp Pulse Resp BP Pulse Ox 97.8 F 64 15 162/73 H 96 06/29/19 07:42 06/29/19 07:42 06/29/19 07:42 06/29/19 07:42 06/29/19 07:42 Intake & Output 06/28/19 06/29/19 06/30/19 06:59 06:59 06:59 Intake Total 1630 3100 Output Total 2615 Balance -985 3100 Weight 68.2 kg General appearance: PRESENT: no acute distress, well-developed, well-nourished Head exam: PRESENT: atraumatic, normocephalic Respiratory exam: PRESENT: clear to auscultation rajeev. ABSENT: rales, rhonchi, wheezes Cardiovascular exam: PRESENT: RRR. ABSENT: diastolic murmur, rubs, systolic murmur Pulses: PRESENT: normal dorsalis pedis pul GI/Abdominal exam: PRESENT: normal bowel sounds, soft. ABSENT: distended, guarding, mass, organolmegaly, rebound, tenderness Neurological exam: PRESENT: alert, awake, oriented to person, oriented to place, oriented to time, oriented to situation, CN II-XII grossly intact. ABSENT: motor sensory deficit Results Laboratory Results: 06/28/19 06:15 06/28/19 06:15 06/26/19 17:13 Arm Gram Stain - Final 06/26/19 17:13 Arm Wound Culture - Final Mrsa (Meth Resis Staph Aureus) 06/26/19 06/26/19 17:13 17:13 Creatine Kinase 130 Troponin I < 0.012 Impressions: Forearm X-Ray 06/26/19 20:32 IMPRESSION: Unremarkable exam copyright 2011 [employer]- All Rights Reserved Assessment and Plan - Diagnosis (1) Right arm cellulitis Is this a current diagnosis for this admission?: Yes Plan: Due to MSSA. Complicated by history of IV drug use. Status post I&D by surgery. Wound culture growing MSSA. Day 4 antibiotics. Received 3 days of IV linezolid. Received Bactrim as outpatient. Day 1 p.o. clindamycin p.o. every 8 hours. Continue wound care. Outpatient wound care and surgery follow-up. (2) Substance abuse Is this a current diagnosis for this admission?: Yes Plan: Benzodiazepine as needed, monitor for withdrawals. (3) Tobacco abuse Is this a current diagnosis for this admission?: Yes Plan: Tobacco cessation counseling performed, nicotine replacement options discussed. (4) Acute renal failure Qualifiers: Acute renal failure type: unspecified Qualified Code(s): N17.9 - Acute kidney failure, unspecified Is this a current diagnosis for this admission?: Yes Plan: Resolved. Likely secondary to Bactrim Monitor volume status and electrolyte replace as needed. Avoid nephrotoxic meds. (5) Physical deconditioning Is this a current diagnosis for this admission?: Yes Plan: Patient suffers from chronic vertigo for which she takes meclizine. Patient is stating that she is living on her own and is not able to take care of her ADLs. She would like to be either sent to short-term rehab or home with home health and home physical therapy. Consult PT OT. We will consult social work manager for possible SNF or home health and home physical therapy. (6) Bacteremia Is this a current diagnosis for this admission?: Yes Plan: Ruled out. Patient actually has MRSA growing in the wound culture not blood culture. Blood cultures negative since admission. Plant as per #1
--- NOTE | 2019-06-29 14:40 | PDOC PROGRESS REPORT ---
Subjective Progress Note for:: 06/29/19 Subjective:: Less pains on the right arm Reason For Visit: ARF CELLULITIS Physical Exam Vital Signs: Temp Pulse Resp BP Pulse Ox 98.1 F 71 17 123/67 98 06/29/19 11:27 06/29/19 11:27 06/29/19 11:27 06/29/19 11:27 06/29/19 11:27 Intake & Output 06/28/19 06/29/19 06/30/19 06:59 06:59 06:59 Intake Total 1630 3100 1121 Output Total 2615 Balance -985 3100 1121 Weight 68.2 kg Exam: Right arm wound appears to be dry with minimal inflammation. Results Laboratory Results: 06/28/19 06:15 06/28/19 06:15 06/27/19 14:29 Arm - Right Cellulitis Gram Stain - Final 06/27/19 14:29 Arm - Right Cellulitis Wound Culture - Final Mrsa (Meth Resis Staph Aureus) 06/26/19 06/26/19 17:13 17:13 Creatine Kinase 130 Troponin I < 0.012 Impressions: Forearm X-Ray 06/26/19 20:32 IMPRESSION: Unremarkable exam copyright 2011 [employer]- All Rights Reserved Assessment & Plan - Diagnosis (1) Acute kidney injury Is this a current diagnosis for this admission?: Yes (2) Right arm cellulitis Is this a current diagnosis for this admission?: Yes - Time Critical Time spent with patient: 15-24 minutes - Plan Summary Plan Summary: Patient is doing very well post debridement of right arm cellulitis/abscess. Patient can be discharged with continued wound dressing using a layer of Xerof orm gauze for about a week. We will sign off.
[2019-06-29] MEDS: CLINDAMYCIN HCL 150 MG CAPSULE PO SCH ×2 (15:06→21:46)
[2019-06-29] MEDS: MECLIZINE HCL 25 MG TABLET PO SCH (18:40)
[2019-06-29] MEDS: TRAZODONE HCL 50 MG TABLET PO SCH (21:46)
[2019-06-29] MEDS: ASPIRIN 81 MG TABLET, ENT COATED PO SCH (21:46)
[2019-06-30] MEDS: GABAPENTIN 300 MG CAPSULE PO SCH (06:07)
[2019-06-30] MEDS: MORPHINE SULFATE 10 MG/ML INJ IV PRN ×2 (06:08→11:00)
[2019-06-30] MEDS: HEPARIN SOD (PORCINE) 5,000 UNIT/ML 1 ML VIAL SUBCUT SCH (06:08)
[2019-06-30] MEDS: CLINDAMYCIN HCL 150 MG CAPSULE PO SCH (06:08)
[2019-06-30] MEDS: LURASIDONE HCL 60 MG TABLET PO SCH (09:54)
[2019-06-30] MEDS: MECLIZINE HCL 25 MG TABLET PO SCH (09:54)
[2019-06-30] MEDS: LAMOTRIGINE 100 MG TABLET PO SCH (09:54)
[2019-06-30 10:55] VITALS: BP 95/49
[2019-06-30] MEDS: HYDROCODONE/ACETAMINOPHEN 5-325 MG TABLET PO PRN (11:06)
--- NOTE | 2019-06-30 16:49 | PDOC DISCHARGE SUMMARY ---
Impression - Admit/DC Date/PCP Admission Date/Primary Care Provider: 06/26/19 22:12 MONROE TRAN MD Discharge Date: 06/30/19 - Discharge Diagnosis (1) Right arm cellulitis Is this a current diagnosis for this admission?: Yes (2) Substance abuse Is this a current diagnosis for this admission?: Yes (3) Tobacco abuse Is this a current diagnosis for this admission?: Yes (4) Acute renal failure Is this a current diagnosis for this admission?: Yes (5) Physical deconditioning Is this a current diagnosis for this admission?: Yes (6) Bacteremia Is this a current diagnosis for this admission?: Yes - Additional Information Resuscitation Status: Full Code Discharge Diet: Regular Discharge Activity: Activity As Tolerated Referrals: COLLIN CUELLAR MD [ACTIVE STAFF] - 07/09/19 2:15 pm Prescriptions: Clindamycin HCl [Cleocin HCl] 150 mg PO TID 5 Days #15 capsule Hydrocodone/Acetaminophen [[place] 5-325 mg Tablet] 1 tab PO Q6 4 Days #16 tablet Home Medications: Aspirin [Ecotrin] 81 mg PO QHS 06/27/19 Cholecalciferol (Vitamin D3) [Vitamin D3 1000 Unit Tablet] 5,000 unit PO DAILY 06/27/19 Gabapentin [Neurontin 300 mg Capsule] 300 mg PO Q8 06/27/19 Labetalol HCl [Normodyne 200 mg Tablet] 200 mg PO DAILY 06/27/19 Lamotrigine 150 mg PO Q12 06/27/19 Lurasidone HCl [Latuda 60 mg Tablet] 60 mg PO BIDBS 06/27/19 Meclizine HCl [Antivert 25 mg Tablet] 50 mg PO BID 06/27/19 Multivitamin [Tab-A-Jones (Multiple Vitamin) Tablet] 1 tab PO DAILY 06/27/19 Trazodone HCl [Desyrel 50 mg Tablet] 100 mg PO QHS 06/27/19 Clindamycin HCl [Cleocin HCl] 150 mg PO TID 5 Days #15 capsule 06/30/19 Hydrocodone/Acetaminophen [[place] 5-325 mg Tablet] 1 tab PO Q6 4 Days #16 tablet 06/30/19 History of Present Illiness History of Present Illness: KRISSY ALFORD is a 58 year old female with a past medical history of hypertension, Charly fundoplication, tobacco and crack cocaine last use within the week. She presents with 5 days of right arm pain and erythema following a scratch by her dog. Evaluation by primary care at the [facility] she was started on Bactrim but without significant improvement she seeks reevaluation the emergency department where she is found to have severe celluli tis And acute renal. She is started on empiric antibiotics and referred to the hospitalist for admission. She denies recent subcut or IV drug use. She admits to remote history of renal failure. Hospital Course Hospital Course: (1) Right arm cellulitis Due to MSSA. Complicated by history of IV drug use. Status post I&D by surgery. Wound culture growing MSSA. Received 5 days of antibiotics. Received 3 days of IV linezolid. Received Bactrim as outpatient. Discharged on clindamycin 300 p.o. 3 times daily for another 5 days. Advised on daily dressing, and follow-up the wound care and surgical clinic for evaluation. (2) Substance abuse No sign of withdrawal. Benzodiazepine as needed. (3) Tobacco abuse Tobacco cessation counseling performed, nicotine replacement options discussed. (4) Acute renal failure Resolved. Likely secondary to Bactrim Monitor volume status and electrolyte replace as needed. Advised to avoid nephrotoxic meds. Outpatient PCP follow-up with us. (5) Physical deconditioning Patient suffers from chronic vertigo for which she takes meclizine. Patient reported to me that she is living on her own and is not able to take care of her ADLs. She wanted to to be either sent to short-term rehab or home with home health and home physical therapy PT was evaluated however as per PT report she had a stated that she has been up and walking without any difficulty and denied any need for physical therapy. Please report PT note. workers compensation manager was consulted for home health arrangements, please refer to social work note. (6) Bacteremia Ruled out. Patient actually has MRSA growing in the wound culture not blood culture. Blood cultures negative since admission. Plant as per #1 Physical Exam Vital Signs: Temp Pulse Resp BP Pulse Ox 98.8 F 60 15 95/49 L 94 06/30/19 10:45 06/30/19 10:45 06/30/19 10:45 06/30/19 10:45 06/30/19 10:45 Intake & Output 06/29/19 06/30/19 07/01/19 06:59 06:59 06:59 Intake Total 3100 2212 Balance 3100 2212 Weight 68.2 kg 72 kg General appearance: PRESENT: no acute distress, well-developed, well-nourished Head exam: PRESENT: atraumatic, normocephalic Respiratory exam: PRESENT: clear to auscultation rajeev. ABSENT: rales, rhonchi, wheezes Cardiovascular exam: PRESENT: RRR. ABSENT: diastolic murmur, rubs, systolic murmur GI/Abdominal exam: PRESENT: normal bowel sounds, soft. ABSENT: distended, guarding, mass, organolmegaly, rebound, tenderness Extremities exam: PRESENT: full ROM. ABSENT: calf tenderness, clubbing, pedal edema Neurological exam: PRESENT: alert, awake, oriented to person, oriented to place, oriented to time, oriented to situation, CN II-XII grossly intact. ABSENT: motor sensory deficit Skin exam: PRESENT: dry, intact, warm, other - Right medial elbow status post I&D, wound looks clean, no sign of discharge, neurovascularly intact.. ABSENT: cyanosis, rash Results Laboratory Results: WBC 4.9 10^3/uL (4.0-10.5) 06/28/19 06:15 RBC 3.54 10^6/uL (3.72-5.28) L 06/28/19 06:15 Hgb 10.3 g/dL (12.0-15.5) L 06/28/19 06:15 Hct 29.8 % (36.0-47.0) L 06/28/19 06:15 MCV 84 fl (80-97) 06/28/19 06:15 MCH 29.2 pg (27.0-33.4) 06/28/19 06:15 MCHC 34.8 g/dL (32.0-36.0) 06/28/19 06:15 RDW 13.1 % (11.5-14.0) 06/28/19 06:15 Plt Count 399 10^3/uL (150-450) 06/28/19 06:15 Lymph % (Auto) Not Reportable 06/28/19 06:15 [place] % (Auto) Not Reportable 06/28/19 06:15 Eos % (Auto) Not Reportable 06/28/19 06:15 Baso % (Auto) Not Reportable 06/28/19 06:15 Reticulocyte # 0.047 10^6/uL (0.028-0.122) 06/27/19 04:08 Absolute Neuts (auto) Not Reportable 06/28/19 06:15 Absolute Lymphs (auto) Not Reportable 06/28/19 06:15 Absolute Monos (auto) Not Reportable 06/28/19 06:15 Absolute Eos (auto) Not Reportable 06/28/19 06:15 Absolute Basos (auto) Not Reportable 06/28/19 06:15 Total Counted 100 06/28/19 06:15 Seg Neutrophils % Not Reportable 06/28/19 06:15 Seg Neuts % (Manual) 42 % (42-78) 06/28/19 06:15 Lymphocytes % (Manual) 26 % (13-45) 06/28/19 06:15 Atypical Lymphs % 15 % (0) 06/28/19 06:15 Monocytes % (Manual) 11 % (3-13) 06/28/19 06:15 Eosinophils % (Manual) 5 % (0-6) 06/28/19 06:15 Basophils % (Manual) 1 % (0-2) 06/28/19 06:15 Abs Neuts (Manual) 2.1 10^3/uL (1.7-8.2) 06/28/19 06:15 Abs Lymphs (Manual) 2.0 10^3/uL (0.5-4.7) 06/28/19 06:15 Abs Monocytes (Manual) 0.5 10^3/uL (0.1-1.4) 06/28/19 06:15 Absolute Eos (Manual) 0.2 10^3/uL (0.0-0.6) 06/28/19 06:15 Abs Basophils (Manual) 0.0 10^3/uL (0.0-0.2) 06/28/19 06:15 Platelet Comment ADEQUATE 06/28/19 06:15 Polychromasia SLIGHT 06/28/19 06:15 Retic Count (auto) 1.20 % (0.66-2.85) 06/27/19 04:08 Sodium 135.1 mmol/L (137-145) L 06/28/19 06:15 Potassium 3.8 mmol/L (3.6-5.0) 06/28/19 06:15 Chloride 103 mmol/L (98-107) 06/28/19 06:15 Carbon Dioxide 22 mmol/L (22-30) 06/28/19 06:15 Anion Gap 10 (5-19) 06/28/19 06:15 BUN 19 mg/dL (7-20) 06/28/19 06:15 Creatinine 1.13 mg/dL (0.52-1.25) 06/28/19 06:15 Est GFR ( Amer) > 60 (>60) 06/28/19 06:15 Est GFR (MDRD) Non-Af 49 (>60) L 06/28/19 06:15 Glucose 190 mg/dL (75-110) H 06/28/19 06:15 Lactic Acid 1.1 mmol/L (0.7-2.1) 06/26/19 18:20 Calcium 8.6 mg/dL (8.4-10.2) 06/28/19 06:15 Magnesium 2.5 mg/dL (1.6-2.3) H 06/26/19 17:13 Iron 23.1 ug/dL (37-170) L 06/27/19 04:08 TIBC 292 ug/dL (250-450) 06/27/19 04:08 % Saturation 8 % 06/27/19 04:08 Ferritin 162.00 ng/mL (11.1-264.0) 06/27/19 04:08 Total Bilirubin 0.3 mg/dL (0.2-1.3) 06/26/19 17:13 Direct Bilirubin 0.1 mg/dL (0.0-0.4) 06/26/19 17:13 Neonat Total Bilirubin Not Reportable 06/26/19 17:13 Neonat Direct Bilirubin Not Reportable 06/26/19 17:13 Neonat Indirect Bili Not Reportable 06/26/19 17:13 AST 20 U/L (14-36) 06/26/19 17:13 ALT 10 U/L (<35) 06/26/19 17:13 Alkaline Phosphatase 104 U/L (38-126) 06/26/19 17:13 Creatine Kinase 130 U/L (30-135) 06/26/19 17:13 Troponin I < 0.012 ng/mL 06/26/19 17:13 Total Protein 7.5 g/dL (6.3-8.2) 06/26/19 17:13 Albumin 4.2 g/dL (3.5-5.0) 06/26/19 17:13 Vitamin B12 320.0 pg/mL (239-931) 06/27/19 04:08 Folate 19.40 ng/mL (>2.76) 06/27/19 04:08 Urine Color YELLOW 06/27/19 01:10 Urine Appearance CLEAR 06/27/19 01:10 Urine pH 5.0 (5.0-9.0) 06/27/19 01:10 Ur Specific [place] 1.011 06/27/19 01:10 Urine Protein 30 mg/dL (NEGATIVE) H 06/27/19 01:10 Urine Glucose (UA) NEGATIVE mg/dL (NEGATIVE) 06/27/19 01:10 Urine Ketones NEGATIVE mg/dL (NEGATIVE) 06/27/19 01:10 Urine Blood NEGATIVE (NEGATIVE) 06/27/19 01:10 Urine Nitrite (Reflex) NEGATIVE (NEGATIVE) 06/27/19 01:10 Urine Bilirubin NEGATIVE (NEGATIVE) 06/27/19 01:10 Urine Urobilinogen NEGATIVE mg/dL (<2.0) 06/27/19 01:10 Leukocyte Esterase Rfl NEGATIVE (NEGATIVE) 06/27/19 01:10 Urine RBC (Auto) 0 /HPF 06/27/19 01:10 U Hyaline Cast (Auto) 1 /LPF 06/27/19 01:10 Urine WBC (Reflex) 8 /HPF 06/27/19 01:10 Squamous Epi Cells Auto <1 /HPF 06/27/19 01:10 Urine Mucus (Auto) RARE /LPF 06/27/19 01:10 Urine Ascorbic Acid 40 (NEGATIVE) H 06/27/19 01:10 Urine Opiates Screen NEGATIVE 06/27/19 01:10 Urine Methadone Screen NEGATIVE 06/27/19 01:10 Ur Barbiturates Screen NEGATIVE 06/27/19 01:10 Ur Phencyclidine Scrn NEGATIVE 06/27/19 01:10 Ur Amphetamines Screen 06/27/19 01:10 U Benzodiazepines Scrn NEGATIVE 06/27/19 01:10 Urine Cocaine Screen NEGATIVE 06/27/19 01:10 U Marijuana (THC) Screen NEGATIVE 06/27/19 01:10 06/26/19 17:13 Troponin I < 0.012 Impressions: Forearm X-Ray 06/26/19 20:32 IMPRESSION: Unremarkable exam copyright 2011 [employer]- All Rights Reserved Stroke Is this a Stroke Patient?: No Acute Heart Failure - Is this a Heart Failure Patient?: No
[2019-07-01 14:33] LABS: PATH REVIEW PATHOLOGIST REVIEWED
== END 2019-06-30 11:15 | disposition home health service (06) | DRG 571 ==
LOC: ER 15:03 → EH 22:12 → 4N 06-27 00:46
PROVIDERS: ADMIT Internal Medicine; ATTEND Internal Medicine
PROC: 0JBG0ZZ Excision of Right Lower Arm Subcutaneous Tissue and Fascia, Open Approach (ICD-10-PCS; principal; 2019-06-27 13:30)
DX: L03.113 Cellulitis of right upper limb (principal); N17.9 Acute kidney failure, unspecified; S50.811A Abrasion of right forearm, initial encounter; B95.62 Methicillin resistant Staphylococcus aureus infection as the cause of diseases classified elsewhere; I10 Essential (primary) hypertension; F14.90 Cocaine use, unspecified, uncomplicated; F17.200 Nicotine dependence, unspecified, uncomplicated; Z71.6 Tobacco abuse counseling; Z86.14 Personal history of Methicillin resistant Staphylococcus aureus infection; R42 Dizziness and giddiness; Z79.899 Other long term (current) drug therapy; F31.9 Bipolar disorder, unspecified; F43.10 Post-traumatic stress disorder, unspecified; D64.9 Anemia, unspecified; Z98.890 Other specified postprocedural states
CPT/HCPCS: 00400; 36415; 80048; 80053; 80307; 81001; 82550; 82607; 82728; 82746; 83540; 83550; 83605; 83735; 84484; 85025; 85045; 87040; 87070; 87075; 87077; 87186; 87205; 96365; 99283; J0690; J1644; J2020; J2250; J2270; J2704; J3010; J3490; J7030; J7060